=== PATIENT | male | born 1980 | race Caucasian/White ===

== ENCOUNTER 2022-04-13 14:33 | Outpatient (REF) | payer OTHER, SELFPAY ==
--- NOTE | ~2022-04-13 | XR_ITS ---
EXAMINATION: XR SHOULDER, RIGHT CLINICAL INFORMATION: Right shoulder pain COMPARISON: None TECHNIQUE: Three views of the right shoulder. FINDINGS: The humeral head is well positioned over the intact glenoid. Glenohumeral joint space is normal. No arthritic deformity, fracture or subluxation. Acromioclavicular joint is normal. The subacromial space is normal. Scapula is unremarkable. No calcium deposition within rotator cuff tendons. The visualized portion of the right lung is normal. XR/XR shoulder RT min 2V IMPRESSION: Normal right shoulder.
== END 2022-04-13 14:34 | disposition home or self-care (01) ==
LOC: HO.HMGCX 14:33
PROVIDERS: Visit Provider Nurse Practitioner Family
DX: M25.511 Pain in right shoulder (principal)
CPT/HCPCS: 73030

== ENCOUNTER 2022-04-28 08:03 | Emergency (ER) | payer OTHER, SELFPAY ==
[2022-04-28 08:07] VITALS: BP 132/88; BP 143/81; PULSE 66; PULSE 99; RESP 20; TEMP 36.8; O2SAT 97; O2SAT 99; BMI 25.0
--- NOTE | 2022-04-28 08:18 | ED.EXTPRO ---
HPI - Extremity Problem General Chief complaint: Extremity Problem Stated complaint: R shoulder spasm rad to chest and leg Time Seen by Provider: 04/28/22 08:11 Source: patient Mode of arrival: ambulatory Limitations: no limitations History of Present Illness HPI Narrative: 41 yo male denies PMH but smokes regularly and drinks 5 to 6 drinks a night. Notes for the past 3 weeks he feels spasms in his shoulders and his legs are heavy. He denies n/v/d preceding this, he is not on a diuretic. He notes his urine is clear. there was no precipitating event. He notes it started to feel funny in his chest as well. He has been trying to drink more fluids and coconut water. He denies this happending before. He was seen at urgent care x 2 who did not check labs but did start him on muscle relaxers without relief. MD Complaint: other (muscle cramps) Onset (ago): week(s) (3) Pain Consistency: constant Location: left, right and other (shoulders, legs feel heavy) Quality: other (spasms) Radiation: other (did has spasms across chest as well ) Relieving factors: nothing Exacerbating factors: nothing Associated symptoms: denies other symptoms Related Data Previous Rx's Medication Instructions Recorded cyclobenzaprine 10 mg tablet 10 mg PO BID PRN muscle spasm 7 04/13/22 days #14 tabs ibuprofen 100 mg/5 mL oral 600 mg (30 mL) PO Q8H PRN pain 04/13/22 suspension #473 mL baclofen 5 mg tablet 5 mg PO TID PRN Muscle spasms #20 04/16/22 tabs folic acid 800 mcg tablet 0.8 mg PO DAILY #30 tabs 04/28/22 thiamine HCl (vitamin B1) 100 mg 100 mg PO DAILY #30 tabs 04/28/22 tablet Allergies Allergy/AdvReac Type Severity Reaction Status Date / Time No Known Allergies Allergy Verified 04/16/22 13:09 [No Known Allergies*] Review of Systems Review of Systems: Constitutional : No Weight loss, No Fever, No Chills ENT/Mouth : No sore throat, No Rhinorrhea Eyes: No Eye Pain, No Swelling Cardiovascular : pos Chest Pain, no SOB, no Dyspnea on Exertion, No Orthopnea, No Edema, No Palpitations Respiratory : No Cough, No Sputum Gastrointestinal : no Nausea, No Vomiting, No Diarrhea, No abdominal Pain, No Hematochezia, No Melena Genitourinary : No Dysuria, No Urinary Frequency Musculoskeletal : No joint pain, No Myalgias, No Joint Swelling, pos muscle spasms Skin : No Skin Lesions, No rash Neuro : No Weakness, No Numbness, No Dizziness, No Headache Psych : No Anxiety/Panic, No Depression Heme/Lymph: No Bruising, No Lymphadenopathy Endocrine : No Polyuria, No Polydipsia All other systems reviewed and are negative [facility] Past Medical History Attestation statement: The following information was validated with the patient. Medical History No pertinent past medical history Social History Social History (Updated 04/28/22 @ 08:59 by Ruth Treviño DO) Alcohol intake: current Alcohol intake frequency: 3 or more drinks per day Alcohol type: beer Patient Tobacco Use Status: Current everyday Tobacco user Smoked in Last 30 Days: No Use of substances other than those prescribed or required for medical reasons: Yes Substance Use Type: Marijuana Substance Use Frequency: Daily Advance Directives: No Advance Directives Information Provided: No Physical Exam Vital Signs: Vital Signs: Last Vital Signs Temp 97.6 F 04/28/22 09:16 Pulse 94 04/28/22 09:16 Resp 16 04/28/22 09:16 BP 126/86 04/28/22 09:16 Pulse Ox 100 04/28/22 09:16 O2 Del Method 04/28/22 09:16 BMI result Body Mass Index 25.0 Appearance: Alert. Oriented X3. No acute distress. Eyes: Pupils equal, round and reactive to light. ENT: Pharynx normal. Neck: Normal inspection. Neck supple. CVS: Normal heart rate and rhythm. Pulses normal. Respiratory: No respiratory distress. Breath sounds normal. Abdomen: Soft and non-tender. Skin: Skin warm and dry. Normal skin color. Normal skin turgor. Extremities: No lower extremity edema. No calf ttp Neuro: Oriented X 3. No motor deficit. No sensory deficit. no clonus present Medications Administered Discontinued Medications Generic Name Dose Route Start Last Admin Trade Name Freq PRN Reason Stop Dose Admin Sodium Chloride 1,000 mls @ 999 mls/hr 04/28/22 08:45 04/28/22 09:56 Ns IV 04/28/22 09:45 Infused .Q1H1M MEL Infusion Thiamine HCl 200 mg/ Sodium 102 mls @ 204 mls/hr 04/28/22 08:37 04/28/22 09:25 Chloride IV 04/28/22 09:06 Infused ONCE ONE Infusion Medical Decision Making Medical Decision Making [facility] Narrative: 41 yo male with no PMH does drink heavily daily here with muscle spasms that sometimes go across the chest which is atypical in nature without ACS risk factors denies cocaine abuse - last used in August. At this time given symptoms suspect lyte abnormality vs dehydration vs possible other neurologic issue. He is PERC negative, has bounding distal pulses and has no pain now doubt dissection. His chest pain is atypical and related to spasm ACS is unlikely no signs of STEMI noted. could have neurologic issue but will need outpatient follow up such as MRI or EEG - discussed with patient that this is outpatient given lack of neurologic findings - MS, ALS Differential Diagnosis Differential Diagnoses: The differential diagnosis associated with the presentation includes lyte abnormality, dehydration, alcohol abuse, MSK strain Lab Data [facility] Lab Attestation statement: I reviewed the patient's lab results. lytes normal at this time 04/28/22 08:40 04/28/22 08:40 Labs: Lab Results 04/28/22 04/28/22 Range/Units 08:40 08:40 WBC 8.0 (4.8-10.8) X10*3/uL RBC 4.76 (4.60-5.80) X10*6/uL Hgb 14.6 (14.0-18.0) g/dl Hct 43.1 (42.0-52.0) % MCV 90.5 (80.0-98.0) fL MCH 30.7 (27.0-33.0) pg MCHC 33.9 (31.0-36.0) g/dl RDW 12.6 (11.0-16.0) % Plt Count 270 (160-400) X10*3/uL MPV 8.9 L (9.4-12.4) fL Immature Gran % (Auto) 0.9 H (0.0-0.4) % Neut % (Auto) 69.6 (45-73) % Lymph % (Auto) 17.7 L (20-40) % [place] % (Auto) 7.3 (2-11) % Eos % (Auto) 4.0 (0-4) % Baso % (Auto) 0.5 (0-2) % Lymph # (Auto) 1.4 (1.2-4.9) X10*3/uL [place] # (Auto) 0.6 (0.1-1.2) X10*3/uL Eos # (Auto) 0.3 (0.0-0.4) X10*3/uL Baso # (Auto) 0.0 (0.0-0.2) X10*3/uL Abs Immat Gran (auto) 0.07 H (0.00-0.03) X10*3/uL Absolute Neuts (auto) 5.6 (2.0-8.3) x10*3/uL Absolute Nucleated RBC 0.000 (0.0-0.012) X10*3/uL Nucleated RBC % (auto) 0.0 (0.0-0.2) /100WBC Sodium 139 (135-145) mmol/L Potassium 4.4 (3.3-5.1) mmol/L Chloride 100 (96-108) mmol/L Carbon Dioxide 29 (22-29) mmol/L Anion Gap 14 (12-20) BUN 16 (9-16) mg/dL Creatinine 1.08 (0.5-1.4) mg/dL Estim Creat Clear Calc 79.8 Estimated GFR > 60 Random Glucose 94 (60-115) mg/dL Calcium 9.7 (8.4-10.2) mg/dL Magnesium 2.2 (1.6-2.6) mg/dL Independent Interpretation I performed an independent interpretation of an: EKG Interpretation: Rate: 81 Rhythm: NSR Chappell: normal Normal P waves. Normal WALLY. Normal QRS complex. ST T wave : no UMESH, inverted t waves III and aVF qTC: normal prior studies: no acute ischemia The study has been interpreted contemporaneously by me. . Independent Historian Clinical information obtained from an independent historian. History obtained from or confirmed by: Spouse Prescription Management I considered prescription management with: Other (thiamine, folic acid) Discharge Plan Discharge Clinical Impression: Muscle spasm Patient Disposition: Home, Self-Care Instructions: Muscle Spasm (ED) Additional Instructions: return to ED for any worsening symptoms or concerns cut down on your drinking. take a multivitamin drink plenty of fluids return for worsening symptoms, fevers, shortness of breath, persistent chest pain you will need to see a primary care doctor for further workup Prescriptions: New thiamine HCl (vitamin B1) 100 mg tablet 100 mg PO DAILY Qty: 30 0RF folic acid 800 mcg tablet 0.8 mg PO DAILY Qty: 30 0RF No Action cyclobenzaprine 10 mg tablet 10 mg PO BID PRN (Reason: muscle spasm) 7 Days Qty: 14 0RF ibuprofen 100 mg/5 mL suspension 600 mg PO Q8H PRN (Reason: pain) Qty: 473 0RF baclofen 5 mg tablet 5 mg PO TID PRN (Reason: Muscle spasms) Qty: 20 0RF Rx Instructions: Sedating no driving Stand Alone Forms: Work/School Release Interventions: ED Discharge Assessment Last Done: 04/28/22 11:00 Discharge Date/Time: 04/28/22 11:00
--- NOTE | 2022-04-28 08:37 | ECG_ITS ---
Test Reason : palpitations Blood Pressure : / mmHG Vent. Rate : 081 BPM Atrial Rate : 081 BPM P-R Int : 170 ms QRS Dur : 086 ms QT Int : 346 ms P-R-T Axes : 028 030 004 degrees QTc Int : 401 ms Normal sinus rhythm Normal ECG No previous ECGs available Referred By: Ruth Treviño Electronically Signed By:CHELSIE FLORES
[2022-04-28 08:45] LABS: MANUAL DIFF FLAG NO
[2022-04-28 08:48] LABS: Basophils Percent Auto 0.5 % (0-2); Eosinophils Absolute Auto 0.3 X10*3/uL (0.0-0.4); Hematocrit 43.1 % (42.0-52.0); Hemoglobin 14.6 g/dl (14.0-18.0); Imm Gran Abs Auto 0.07 X10*3/uL (0.00-0.03); Imm Gran Pct Auto 0.9 % (0.0-0.4); Lymphocytes Absolute Auto 1.4 X10*3/uL (1.2-4.9); Lymphocytes Percent Auto 17.7 % (20-40); Mean Corpuscular HGB Conc 33.9 g/dl (31.0-36.0); Mean Corpuscular Hemoglobin 30.7 pg (27.0-33.0); Mean Corpuscular Volume 90.5 fL (80.0-98.0); Mean Platelet Volume 8.9 fL (9.4-12.4); Monocytes Absolute Auto 0.6 X10*3/uL (0.1-1.2); Monocytes Percent Auto 7.3 % (2-11); Neutrophils Absolute Auto 5.6 x10*3/uL (2.0-8.3); Neutrophils Percent Auto 69.6 % (45-73); Platelet Count 270 X10*3/uL (160-400); Red Blood Count 4.76 X10*6/uL (4.60-5.80); Red Cell Distribution Width 12.6 % (11.0-16.0)
[2022-04-28] MEDS: 0.9 % Sodium Chloride 1,000 ML 999 ML IV (08:55)
[2022-04-28] MEDS: Thiamine HCL 200 MG in 0.9 % Sodium Chloride 100 ML 204 MG IV (08:55)
--- NOTE | 2022-04-28 08:57 | MHC.EDTECH ---
Gave patient bed bath, changed linen and then fed him his breakfast. Joann Juarez
[2022-04-28 09:07] LABS: Anion Gap 14 (12-20); Blood Urea Nitrogen 16 mg/dL (9-16); Calcium 9.7 mg/dL (8.4-10.2); Carbon Dioxide 29 mmol/L (22-29); Chloride 100 mmol/L (96-108); Creatinine Clr Calc Pharmacy 79.8; Estimated Glomerular Filt Rate > 60; Glucose Random 94 mg/dL (60-115); Magnesium 2.2 mg/dL (1.6-2.6); Potassium 4.4 mmol/L (3.3-5.1); Sodium 139 mmol/L (135-145)
[2022-04-28 09:16] VITALS: BP 126/86; PULSE 94; RESP 16; TEMP 36.4; O2SAT 100
--- NOTE | 2022-04-28 09:18 | PC.NURSE ---
pt a&ox3, vss, ekg preformed, iv inserted, iv fluids running per order
== END 2022-04-28 11:00 | disposition home or self-care (01) ==
PROVIDERS: Emergency Provider Emergency Medicine
DX: M62.838 Other muscle spasm (principal); R00.2 Palpitations; Z79.899 Other long term (current) drug therapy
CPT/HCPCS: 36415; 80048; 83735; 85025; 93005; 96361; 96374; 99284; J3411

== ENCOUNTER 2022-09-20 10:23 | Emergency (ER) | payer OTHER, SELFPAY ==
--- NOTE | ~2022-09-20 | XR_ITS ---
EXAMINATION: XR ABDOMEN KUB CLINICAL INDICATION: Right abdominal pain COMPARISON: None available. TECHNIQUE: AP view of the abdomen. FINDINGS: The bowel gas pattern is normal with no evidence of ileus or obstruction. No unusual soft tissue calcifications are noted. The bones are unremarkable. XR/XR KUB IMPRESSION: Unremarkable KUB.
[2022-09-20 10:28] VITALS: BP 153/88; PULSE 74; RESP 19; TEMP 36.6; O2SAT 98; BMI 25.0
--- NOTE | 2022-09-20 10:54 | PC.NURSE ---
patient a&ox3, iv inserted, labs drawn, urine obtained, pt c/o 07/13 rt abd pain-painful upon palp,call chaney within reach, pt awaiting provider will continue to monitor
[2022-09-20 10:58] LABS: Basophils Percent Auto 0.4 % (0-2); Eosinophils Absolute Auto 0.3 X10*3/uL (0.0-0.4); Eosinophils Percent Auto 3.2 % (0-4); Hematocrit 43.1 % (42.0-52.0); Hemoglobin 14.9 g/dl (14.0-18.0); Imm Gran Abs Auto 0.05 X10*3/uL (0.00-0.03); Imm Gran Pct Auto 0.6 % (0.0-0.4); Lymphocytes Absolute Auto 1.7 X10*3/uL (1.2-4.9); Lymphocytes Percent Auto 20.3 % (20-40); MANUAL DIFF FLAG NO; Mean Corpuscular HGB Conc 34.6 g/dl (31.0-36.0); Mean Corpuscular Hemoglobin 30.9 pg (27.0-33.0); Mean Corpuscular Volume 89.4 fL (80.0-98.0); Mean Platelet Volume 9.2 fL (9.4-12.4); Monocytes Absolute Auto 0.7 X10*3/uL (0.1-1.2); Neutrophils Absolute Auto 5.5 x10*3/uL (2.0-8.3); Neutrophils Percent Auto 67.5 % (45-73); Platelet Count 297 X10*3/uL (160-400); Red Blood Count 4.82 X10*6/uL (4.60-5.80); White Blood Count 8.1 X10*3/uL (4.8-10.8)
[2022-09-20 11:00] LABS: Appearance Urine Clear; Color Urine Yellow; Glucose Urine UA Negative (Negative); Leukocyte Esterase Urine Negative (Negative); Nitrite Urine Negative (Negative); Specific Gravity - Urine <= 1.005 (1.005-1.025); Urine Blood Negative (Negative); Urine Ketones Negative (Negative); Urine Protein Negative (Neg-Trace)
[2022-09-20 11:33] LABS: Alanine Aminotransferase 13 U/L (0-40); Albumin Level 4.9 g/dL (3.5-5.0); Alkaline Phosphatase 66 U/L (39-117); Anion Gap 14 (12-20); Aspartate Amino Transferase 18 U/L (5-37); Bilirubin Direct 0.2 mg/dL (0.0-0.5); Bilirubin Total 0.7 mg/dL (0.0-1.0); Blood Urea Nitrogen 11 mg/dL (9-16); Calcium 10.4 mg/dL (8.4-10.2); Carbon Dioxide 26 mmol/L (22-29); Chloride 106 mmol/L (96-108); Estimated Glomerular Filt Rate > 60; Glucose Random 93 mg/dL (60-115); Lipase 19 U/L (8-78); Potassium 4.3 mmol/L (3.3-5.1); Sodium 142 mmol/L (135-145)
--- NOTE | 2022-09-20 12:21 | ED_ITS ---
HPI - Abdominal Pain General Chief Complaint: Abdominal Pain Stated Complaint: abd pain Time Seen by Provider: 09/20/22 10:47 Source: patient and family Mode of arrival: ambulatory History of Present Illness HPI narrative: 42-year-old male who is a 4-5 every day beer drinker and has been suffering from chronic back pain and presents with right-sided abdominal discomfort that radiates from the back, also complaining of epigastric discomfort but denies any fevers, chills, nausea, vomiting, diarrhea and denies any urinary symptoms. Related Data Previous Rx's Medication Instructions Recorded cyclobenzaprine 10 mg tablet 10 mg PO BID PRN muscle spasm 7 04/13/22 days #14 tabs ibuprofen 100 mg/5 mL oral 600 mg (30 mL) PO Q8H PRN pain 04/13/22 suspension #473 mL baclofen 5 mg tablet 5 mg PO TID PRN Muscle spasms #20 04/16/22 tabs folic acid 800 mcg tablet 0.8 mg PO DAILY #30 tabs 04/28/22 thiamine HCl (vitamin B1) 100 mg 100 mg PO DAILY #30 tabs 04/28/22 tablet omeprazole 40 mg capsule,delayed 40 mg PO DAILY #30 caps 09/20/22 release sucralfate 100 mg/mL oral 10 ml PO BID #420 mL 09/20/22 suspension (Carafate) Allergies Allergy/AdvReac Type Severity Reaction Status Date / Time No Known Allergies Allergy Verified 09/20/22 10:27 [No Known Allergies*] Review of Systems Review of Systems Pertinent positives and negatives as stated in HPI [facility] Past Medical History Source: nursing notes reviewed Medical History No pertinent past medical history Social History Social History Alcohol intake: current Alcohol intake frequency: a few times a week Alcohol type: beer Patient Tobacco Use Status: Current everyday Tobacco user Smoked in Last 30 Days: No Use of substances other than those prescribed or required for medical reasons: No Substance Use Type: Marijuana Advance Directives: No Advance Directives Information Provided: Yes Physical Exam ED Vital Signs: Vital Signs - 24 hr 09/20/22 10:28 Temperature 98 F Pulse Rate 74 Respiratory Rate 19 Blood Pressure 153/88 H Pulse Oximetry 98 Oxygen Delivery Method Room Air BMI result Body Mass Index 25.0 VITAL SIGNS: Reviewed. GENERAL: Well developed, well nourished, in no acute distress. HEAD: Normocephalic/atraumatic EYES: PERRLA, EOMI EARS: Ext canals without abnormality NOSE: Nares patent bilateral OROPHARYNX: no oral lesions noted, posterior pharynx clear NECK: Supple, no adenopathy LUNGS: Normal breath sounds. No adventitious sounds or accessory muscle use. SpO2<98> CARDIOVASCULAR: Regular rate and rhythm without noted murmurs ABDOMEN: Soft, non-tender, non-distended with bowel sounds. MUSCULOSKELETAL: No tenderness, deformities, or effusions noted on gross inspection. EXTREMITIES: No cyanosis, clubbing or edema. SKIN: Inspection of the skin reveals no rashes NEUROLOGIC: Alert and oriented x 4. Strength and sensation to light touch were grossly intact x 4. Medical Decision Making Medical Decision Making MDM Narrative: 42-year-old male with history and clinical presentation most suggestive of acute on chronic back pain and may be component gastritis given use of NSAIDs and alcohol. I have no clinical suspicion for an ongoing infection for a month. I reviewed all investigations and my interpretation is acute on chronic back pa in and gastritis secondary to NSAID and alcohol use. Differential Diagnosis Please see the discussion above Lab Data Please see the discussion above 09/20/22 10:51 09/20/22 10:51 Labs: Lab Results 09/20/22 09/20/22 09/20/22 Range/Units 10:51 10:51 10:51 WBC 8.1 (4.8-10.8) X10*3/uL RBC 4.82 (4.60-5.80) X10*6/uL Hgb 14.9 (14.0-18.0) g/dl Hct 43.1 (42.0-52.0) % MCV 89.4 (80.0-98.0) fL MCH 30.9 (27.0-33.0) pg MCHC 34.6 (31.0-36.0) g/dl RDW 12.0 (11.0-16.0) % Plt Count 297 (160-400) X10*3/uL MPV 9.2 L (9.4-12.4) fL Immature Gran % (Auto) 0.6 H (0.0-0.4) % Neut % (Auto) 67.5 (45-73) % Lymph % (Auto) 20.3 (20-40) % Saline % (Auto) 8.0 (2-11) % Eos % (Auto) 3.2 (0-4) % Baso % (Auto) 0.4 (0-2) % Lymph # (Auto) 1.7 (1.2-4.9) X10*3/uL Saline # (Auto) 0.7 (0.1-1.2) X10*3/uL Eos # (Auto) 0.3 (0.0-0.4) X10*3/uL Baso # (Auto) 0.0 (0.0-0.2) X10*3/uL Abs Immat Gran (auto) 0.05 H (0.00-0.03) X10*3/uL Absolute Neuts (auto) 5.5 (2.0-8.3) x10*3/uL Absolute Nucleated RBC 0.000 (0.0-0.012) X10*3/uL Nucleated RBC % (auto) 0.0 (0.0-0.2) /100WBC Sodium 142 (135-145) mmol/L Potassium 4.3 (3.3-5.1) mmol/L Chloride 106 (96-108) mmol/L Carbon Dioxide 26 (22-29) mmol/L Anion Gap 14 (12-20) BUN 11 (9-16) mg/dL Creatinine 1.17 (0.5-1.4) mg/dL Estim Creat Clear Calc 73.0 Estimated GFR > 60 Random Glucose 93 (60-115) mg/dL Calcium 10.4 H D (8.4-10.2) mg/dL Total Bilirubin 0.7 (0.0-1.0) mg/dL Direct Bilirubin 0.2 (0.0-0.5) mg/dL AST 18 (5-37) U/L ALT 13 (0-40) U/L Alkaline Phosphatase 66 (39-117) U/L Total Protein 8.0 (6.5-8.0) g/dL Albumin 4.9 (3.5-5.0) g/dL Lipase 19 (8-78) U/L Urine Color Yellow Urine Appearance Clear Urine pH 6.0 (5.0-9.0) Ur Specific [place] <= 1.005 (1.005-1.025) Urine Protein Negative (Neg-Trace) mg/dL Urine Glucose (UA) Negative (Negative) mg/dL Urine Ketones Negative (Negative) mg/dL Urine Blood Negative (Negative) Urine Nitrite Negative (Negative) Ur Leukocyte Esterase Negative (Negative) Radiology Impression Radiologist Impression: My interpretation is in agreement with radiology's impression. Discharge Plan Discharge Clinical Impression: Gastritis, Acute exacerbation of chronic low back pain, NSAID long-term use Patient Disposition: Home, Self-Care Instructions: Gastritis (ED), Diet for Stomach Ulcers and Gastritis (ED), Back Pain (ED), Safe Use of NSAIDs (ED) Additional Instructions: 1. I suspect that your symptoms are likely a combination of your chronic back pain as well as inflammation of the stomach lining due to the use of the ibuprofen in combination with alcohol. 2. I recommend that you stop using the ibuprofen (this would include Motrin, Naprosyn, Aleve, Excedrin) for a minimum of 1 week as well as no alcohol use for the same time. You will then need to use the 2 prescriptions that I have included at this discharge. 3. Follow-up with your primary care provider for discussion regarding possible upper endoscopy. Return to the ER for any worsening symptoms. Prescriptions: New omeprazole 40 mg capsule,delayed release(DR/EC) 40 mg PO DAILY Qty: 30 0RF sucralfate [Carafate] 100 mg/mL suspension 10 ml PO BID Qty: 420 0RF No Action thiamine HCl (vitamin B1) 100 mg tablet 100 mg PO DAILY Qty: 30 0RF folic acid 800 mcg tablet 0.8 mg PO DAILY Qty: 30 0RF cyclobenzaprine 10 mg tablet 10 mg PO BID PRN (Reason: muscle spasm) 7 Days Qty: 14 0RF ibuprofen 100 mg/5 mL suspension 600 mg PO Q8H PRN (Reason: pain) Qty: 473 0RF baclofen 5 mg tablet 5 mg PO TID PRN (Reason: Muscle spasms) Qty: 20 0RF Rx Instructions: Sedating no driving Referrals: Barney Dash MD [Primary Care Provider] -
[2022-09-20] MEDS: Lidocaine HCl Viscous 2 % 15 ML SOLUTION 10 ML MUCOUS MEM (12:55)
[2022-09-20] MEDS: Sucralfate Oral Suspension 1 GM/10 ML ORAL.SUSP PO (12:55)
[2022-09-20] MEDS: Magnesium Hydrox/Alum Hydrox 30 ML ORAL.SUSP PO (12:55)
--- NOTE | 2022-09-20 12:55 | PC.NURSE ---
pt medicated per order
== END 2022-09-20 13:15 | disposition home or self-care (01) ==
PROVIDERS: Emergency Provider Student in an Organized Health Care Education/Training Program; PCP Internal Medicine Cardiovascular Disease
DX: K29.70 Gastritis, unspecified, without bleeding (principal); G89.29 Other chronic pain; M54.50 Low back pain, unspecified; Z79.1 Long term (current) use of non-steroidal anti-inflammatories (NSAID); Z79.899 Other long term (current) drug therapy
CPT/HCPCS: 36415; 74018; 80048; 80076; 81003; 83690; 85025; 99283; 99284

== ENCOUNTER 2022-10-27 08:03 | Outpatient (AMB) | payer OTHER, SELFPAY ==
--- NOTE | 2022-10-27 08:07 | MHC.OFFWIV ---
Intake Vital Signs 10/27/22 08:10 Height 5 ft 5 in BP 118/70 Blood Pressure Location Lt brachial Position Sitting Pulse 80 Pulse Source Pulse Oximeter Temp 97.3 F Temp Source Temporal Artery Scan Pulse Oximetry (%) 98 Oxygen Delivery Method Room Air Intake Visit Reasons: EP Pain in rt side abd (lobby) Intake Note: Pt is here c/o a sharp needle pain in his stomach. Pt states he has been getting stomach aches but last night was the worse. Patient Tobacco Use Status: Current everyday Tobacco user Allergies No Known Allergies [No Known Allergies*] Allergy (Verified 10/27/22 08:09) Do you need a note to return to daycare/school/sports/work: Yes HPI HPI Comments History of Present Illness Details 42-year-old male presents with periumbilical abdominal pain radiating to his right lower quadrant. States that this pain was so intense last night that he could not sleep. He has no prior history of surgeries, has had 2 bowel movements this morning, and does not report fevers or chills. [facility] Medical History No pertinent past medical history Social History Alcohol intake: current Alcohol intake frequency: a few times a week Alcohol type: beer Patient Tobacco Use Status: Current everyday Tobacco user Substance Use Type: Marijuana Review of Systems Const Details: Constitutional: No Fever, No Chills Cardiovascular: No Chest Pain, No SOB Respiratory: No Cough, No Dyspnea Gastrointestinal: No Nausea, No Vomiting, No Diarrhea, positive umbilical abdominal Pain Genitourinary: No Dysuria, No Hematuria Musculoskeletal: No joint pain, No Myalgias, No Joint Swelling Skin: No Skin lacerations, No rash Neuro: No Weakness, No Dizziness, No Headache All systems reviewed & are unremarkable except as noted in HPI and below Physical Exam Vital Signs: Last Vital Signs Temp 97.3 F 10/27/22 08:10 Pulse 80 10/27/22 08:10 BP 118/70 10/27/22 08:10 Pulse Ox 98 10/27/22 08:10 Oxygen Delivery Method Room Air 10/27/22 08:10 Appearance: Alert. Oriented X3. Mild distress. Eyes: Pupils equal, round and reactive to light. Neck: Normal inspection. Neck supple. CVS: Normal heart rate and rhythm. Pulses normal. Respiratory: No respiratory distress. Breath sounds normal. Abdomen: Soft and tender to the umbilical radiating to the right lower quadrant, tenderness to the epigastric and right upper quadrant Skin: Skin warm and dry. Normal skin color. Normal skin turgor. Extremities: Gait well balanced well coordinated Neuro: No motor deficit. No sensory deficit cranial nerves 2-12 intact. Results AMB Urinalysis, Automated UA Leukoctes 0 Scotty/uL Last Edit by Kirti Stratton, ZAC on 10/27/22 08:23 UA Nitrite Negative Last Edit by Kirti Stratton, MEDICAL SONOGRAPHER on 10/27/22 08:23 UA Urobilinogen 0.2 mg/dL Last Edit by Kirti Stratton, MEDICAL SONOGRAPHER on 10/27/22 08:23 UA Protein 15 mg/dL Last Edit by Kirti Stratton, MEDICAL SONOGRAPHER on 10/27/22 08:23 UA pH 6.0 Last Edit by Kirti Stratton, MEDICAL SONOGRAPHER on 10/27/22 08:23 UA Blood 0 Forrets/uL Last Edit by Kirti Stratton, MEDICAL SONOGRAPHER on 10/27/22 08:23 UA Specific [place] 1.025 Last Edit by Kirti Stratton, MEDICAL SONOGRAPHER on 10/27/22 08:23 UA Ketone Negative Last Edit by Kirti Stratton, ZAC on 10/27/22 08:23 UA Bilirubin 0 mg/dL Last Edit by Kirti Stratton, MEDICAL SONOGRAPHER on 10/27/22 08:23 UA Glucose 0 mg/dL Last Edit by Kirti Stratton, MEDICAL SONOGRAPHER on 10/27/22 08:23 Assessment & Plan Assessment & Plan (1) Abdominal pain: Code(s): R10.9 - Unspecified abdominal pain Plan 42-year-old male presents for abdominal pain that started around his umbilicus radiating to his right lower quadrant, this pain started last night however he does report having abdominal pain off and on over the past few months. States the abdominal pain was so bad last night that he could not sleep. He does not report fevers or chills, and is able to eat and drink without difficulty. He has had several bowel movement this morning. No prior history of abdominal surgery. On exam, patient's abdomen is soft, tender to the umbilicus, right lower quadrant, right upper quadrant and epigastric area. Patient has stable vital signs are within normal limits, afebrile. And appears nontoxic. Considering that this patient has not had prior abdominal surgery, and has a tender abdomen palpation, plan of care is for patient to be evaluated in the emergency department for acute abdomen. Patient would like to go to [facility] provider to provider report called in by this TUNNEL HEADING SUPERVISOR. Orders: Orders AMB Urinalysis Automated Today Z13.9 - Encounter for screening, unspecified Patient Instructions: You were evaluated in urgent care for abdominal pain. Please present to the emergency department for evaluation. Coding Level of Care Code Est Pt Level 3 (94760) Diagnoses Abdominal pain R10.9
[2022-10-27 08:10] VITALS: BP 118/70; PULSE 80; TEMP 36.3; O2SAT 98
== END 2022-10-27 08:32 | disposition home or self-care (01) ==
PROVIDERS: PCP Internal Medicine Cardiovascular Disease; Visit Provider Nurse Practitioner Family
DX: R10.9 Unspecified abdominal pain (principal)
CPT/HCPCS: 81003; 99213

== ENCOUNTER 2022-10-27 08:52 | Emergency (ER) | payer OTHER, SELFPAY ==
--- NOTE | ~2022-10-27 | CT_ITS ---
EXAMINATION: CT ABDOMEN AND PELVIS WITH CONTRAST CLINICAL INFORMATION: Right lower quadrant pain. COMPARISON: None available. TECHNIQUE: Multidetector volumetric images were obtained from the superior aspect of the liver through the pubic symphysis following administration 85 mL of Omnipaque 350 intravenous contrast. Sagittal and coronal reformatted images were obtained on the technologist's workstation. Oral contrast: No This CT examination was performed using dose optimization techniques as appropriate, variously including the following: *Automated exposure control *Adjustment of mA and/or kV according to patient size (this includes techniques or standardized protocols for targeted exams where dose is matched to indication/reason for exam; i.e. extremities or head) *Use of iterative reconstruction technique DLP: 443 mGy-cm FINDINGS: LUNG BASES: The visualized lung bases are unremarkable. LIVER, GALLBLADDER, AND BILIARY TREE: Unremarkable. PANCREAS: Unremarkable. SPLEEN: Unremarkable. ADRENAL GLANDS: Unremarkable. KIDNEYS AND URETERS: The kidneys are normal in size, shape, and attenuation. No hydronephrosis, hydroureter, or calculi seen. No perinephric stranding. BLADDER: Unremarkable. GASTROINTESTINAL TRACT: The stomach, small bowel and appendix are unremarkable. The colon and rectum are unremarkable. ABDOMINAL WALL: No significant hernia is appreciated. LYMPH NODES: No lymphadenopathy. VASCULAR: Unremarkable. PELVIC VISCERA: Unremarkable. OSSEOUS STRUCTURES: Unremarkable. CT/CT abdomen pelvis w IV con IMPRESSION: No acute intra-abdominal/pelvic abnormality to explain the patient's pain. No evidence for acute appendicitis. Fleischner guidelines were followed.
[2022-10-27 09:04] VITALS: BP 115/64; PULSE 77; RESP 18; TEMP 36.3; O2SAT 99; BMI 26.1
[2022-10-27 10:00] VITALS: BP 135/79; PULSE 69; RESP 18; TEMP 36.9; O2SAT 99
[2022-10-27] MEDS: 0.9 % Sodium Chloride 1,000 ML 999 ML IV (10:19)
[2022-10-27 10:20] LABS: MANUAL DIFF FLAG NO
[2022-10-27 10:22] LABS: Basophils Percent Auto 0.3 % (0-2); Eosinophils Absolute Auto 0.1 X10*3/uL (0.0-0.4); Eosinophils Percent Auto 0.9 % (0-4); Hematocrit 38.1 % (42.0-52.0); Hemoglobin 13.2 g/dl (14.0-18.0); Imm Gran Abs Auto 0.02 X10*3/uL (0.00-0.03); Imm Gran Pct Auto 0.3 % (0.0-0.4); Lymphocytes Absolute Auto 1.2 X10*3/uL (1.2-4.9); Lymphocytes Percent Auto 15.9 % (20-40); Mean Corpuscular HGB Conc 34.6 g/dl (31.0-36.0); Mean Corpuscular Hemoglobin 30.8 pg (27.0-33.0); Monocytes Absolute Auto 0.7 X10*3/uL (0.1-1.2); Monocytes Percent Auto 9.9 % (2-11); Neutrophils Absolute Auto 5.4 x10*3/uL (2.0-8.3); Neutrophils Percent Auto 72.7 % (45-73); Platelet Count 270 X10*3/uL (160-400); Red Blood Count 4.28 X10*6/uL (4.60-5.80); Red Cell Distribution Width 11.7 % (11.0-16.0); White Blood Count 7.5 X10*3/uL (4.8-10.8)
[2022-10-27] MEDS: Ketorolac Tromethamine 15 MG/ML VIAL IVPUSH (10:22)
[2022-10-27] MEDS: ondansetron HCL 4 MG/2 ML VIAL IVPUSH (10:22)
--- NOTE | 2022-10-27 10:25 | PC.NURSE ---
pt a&ox3, vss, pt coming in d/t increasein abomdinal pain that has been going on since wednesday. pt went to urgent care to be seen and then urgent care sent pt [place] [facility]. pt stating 4/10 abdominal pain. 20g IV placed in the right AC w/o complications, IVF and medications administered per provider order. labs drawn and sent to lab. urine cup placed bedside for when pt needs to urinate so we are able to send sample. verbalized to pt to use call chaney so he can be d/c from fluids.
[2022-10-27 10:35] LABS: Alanine Aminotransferase 12 U/L (0-40); Albumin Level 4.4 g/dL (3.5-5.0); Alkaline Phosphatase 73 U/L (39-117); Anion Gap 9 (12-20); Aspartate Amino Transferase 14 U/L (5-37); Bilirubin Total 0.7 mg/dL (0.0-1.0); Blood Urea Nitrogen 11 mg/dL (9-16); Calcium 9.7 mg/dL (8.4-10.2); Carbon Dioxide 27 mmol/L (22-29); Chloride 108 mmol/L (96-108); Estimated Glomerular Filt Rate > 60; Glucose Random 86 mg/dL (60-115); Lipase 18 U/L (8-78); Potassium 3.7 mmol/L (3.3-5.1); Sodium 140 mmol/L (135-145); Total Protein 7.4 g/dL (6.5-8.0)
[2022-10-27] MEDS: iohexoL 350 MG/ML 100 ML INFUS..BTL IV (11:12)
[2022-10-27 11:37] VITALS: BP 121/76; PULSE 64; RESP 18; O2SAT 98
[2022-10-27 11:37] LABS: Appearance Urine Clear; Color Urine Yellow; Glucose Urine UA Negative (Negative); Leukocyte Esterase Urine Negative (Negative); Nitrite Urine Negative (Negative); Specific Gravity - Urine <= 1.005 (1.005-1.025); Urine Blood Negative (Negative); Urine Ketones Negative (Negative); Urine Protein Negative (Neg-Trace)
--- NOTE | 2022-10-27 11:37 | PC.NURSE ---
pt a&ox3, returned from CT and urinesent to lab, vss, pt verbalizing that pain decreased to a 1/0 post medication administration. IVF completely infused and dc'd. call chaney within reach.
--- NOTE | 2022-10-27 12:37 | ED.ABDPAIN ---
HPI - Abdominal Pain General Chief Complaint: Abdominal Pain Stated Complaint: ? Appendicitis Sent By PCP Time Seen by Provider: 10/27/22 09:39 Source: patient Mode of arrival: ambulatory Limitations: no limitations History of Present Illness HPI narrative: Patient presents with abdominal pain. The symptoms started 2 or 3 days ago. The symptoms come and go. At its worst the pain is a 10/10. Currently the pain is a 3/10. The pain does not radiate. There is no clear relieving or exacerbating features. There was some nausea but no vomiting. There is no diarrhea constipation. No urinary frequency urgency, or dysuria. He has never had this pain before. No history of intra-abdominal surgeries. Related Data Home Medications Medication Instructions Recorded Confirmed famotidine 20 mg tablet 20 mg PO BID 10/27/22 Previous Rx's Medication Instructions Recorded folic acid 800 mcg tablet 0.8 mg PO DAILY #30 tabs 04/28/22 thiamine HCl (vitamin B1) 100 mg 100 mg PO DAILY #30 tabs 04/28/22 tablet omeprazole 40 mg capsule,delayed 40 mg PO DAILY #30 caps 09/20/22 release sucralfate 100 mg/mL oral 10 ml PO BID #420 mL 09/20/22 suspension (Carafate) Allergies Allergy/AdvReac Type Severity Reaction Status Date / Time No Known Allergies Allergy Verified 10/27/22 09:04 [No Known Allergies*] Review of Systems Review of Systems CONSTITUTIONAL: Denies weight loss, fever and chills. HEENT: Denies changes in vision and hearing. RESPIRATORY: Denies SOB and cough. CV: Denies palpitations no CP. GI: + abdominal pain, nausea, - vomiting and diarrhea. : Denies dysuria and urinary frequency. MSK: Denies myalgia and joint pain. SKIN: Denies rash and pruritus. NEUROLOGICAL: Denies headache and syncope. PSYCHIATRIC: Denies recent changes in mood. Denies anxiety and depression. All other ROS are negative unless in HPI PMFSH Past Medical History Medical History No pertinent past medical history Social History Social History Alcohol intake: current Alcohol intake frequency: a few times a week Alcohol type: beer Patient Tobacco Use Status: Current everyday Tobacco user Smoked in Last 30 Days: No Use of substances other than those prescribed or required for medical reasons: Yes Substance Use Type: Marijuana Advance Directives: No Advance Directives Information Provided: No Physical Exam ED Vital Signs: Vital Signs - 24 hr 10/27/22 09:04 10/27/22 10:00 10/27/22 11:37 Temperature 97.3 F 98.4 F Pulse Rate 77 69 64 Respiratory Rate 18 18 18 Blood Pressure 115/64 135/79 121/76 Pulse Oximetry 99 99 98 Oxygen Delivery Method Room Air Room Air Room Air BMI result Body Mass Index 26.1 GEN: Well developed, no acute distress, alert, oriented HEENT: Normocephalic, atraumatic, normal external ears, nose appears normal, no oropharyngeal edema or exudates Eyes: Normal to appearance Neck: Supple, no lymphadenopathy Respiratory: Talks in complete sentences, no respiratory distress, clear to auscultation bilaterally Cardiovascular: Regular rate and rhythm, no murmurs rubs or gallops Abdomen: Soft, right lower quadrant tenderness, nondistended, no guarding, no rebound Back: No CVA tenderness Extremities: No clubbing cyanosis or edema Neurologic: No focal neurologic deficits, cranial nerves 2-12 intact, strength is 5/5 bilaterally Skin: No rash Course Course Course Narrative: The workup is complete. Patient is pain-free at the moment. His repeat examination reveals a soft nontender abdomen. I reviewed all results with the patient including normal urinalysis, no evidence of acute appendicitis or other inflammatory process in the abdominal area. He was certainly reassured but somewhat frustrated by not having a diagnosis at this time. Until patient be cautiously optimistic. This may easily resolve on its own. However, shows symptoms become worse, progress in any way, he can return for re-evaluation. Patient will be discharged home to, he can take Tylenol ibuprofen as needed. Medical Decision Making Medical Decision Making MDM Narrative: 42-year-old male presents with lower abdominal pain. Has tenderness in the suprapubic and right lower quadrant area. This concerning for acute appendicitis. Differential diagnosis would also consider consider biliary colic, IBD, IBS, bacterial overgrowth, epiploic appendagitis, mesenteric adenitis, musculoskeletal, ureterolithiasis. Plan to obtain routine laboratory analysis, patient provide patient with analgesia and antiemetics, IV fluids. Would also like to get a CT scan the abdomen pelvis rule out the differential diagnosis. Differential Diagnosis Differential Diagnoses: The differential diagnosis associated with the presentation includes (See above) Admission/Observation Consideration of admission/observation: Escalation of care including admission/observation considered Lab Data MDM Lab Attestation statement: I reviewed the patient's lab results. 10/27/22 10:17 10/27/22 10:17 Labs: Lab Results 10/27/22 10/27/22 10/27/22 Range/Units 10:17 10:17 11:26 WBC 7.5 (4.8-10.8) X10*3/uL RBC 4.28 L (4.60-5.80) X10*6/uL Hgb 13.2 L (14.0-18.0) g/dl Hct 38.1 L (42.0-52.0) % MCV 89.0 (80.0-98.0) fL MCH 30.8 (27.0-33.0) pg MCHC 34.6 (31.0-36.0) g/dl RDW 11.7 (11.0-16.0) % Plt Count 270 (160-400) X10*3/uL MPV 9.0 L (9.4-12.4) fL Immature Gran % (Auto) 0.3 (0.0-0.4) % Neut % (Auto) 72.7 (45-73) % Lymph % (Auto) 15.9 L (20-40) % [place] % (Auto) 9.9 (2-11) % Eos % (Auto) 0.9 (0-4) % Baso % (Auto) 0.3 (0-2) % Lymph # (Auto) 1.2 (1.2-4.9) X10*3/uL [place] # (Auto) 0.7 (0.1-1.2) X10*3/uL Eos # (Auto) 0.1 (0.0-0.4) X10*3/uL Baso # (Auto) 0.0 (0.0-0.2) X10*3/uL Abs Immat Gran (auto) 0.02 (0.00-0.03) X10*3/uL Absolute Neuts (auto) 5.4 (2.0-8.3) x10*3/uL Absolute Nucleated RBC 0.000 (0.0-0.012) X10*3/uL Nucleated RBC % (auto) 0.0 (0.0-0.2) /100WBC Sodium 140 (135-145) mmol/L Potassium 3.7 (3.3-5.1) mmol/L Chloride 108 (96-108) mmol/L Carbon Dioxide 27 (22-29) mmol/L Anion Gap 9 L (12-20) BUN 11 (9-16) mg/dL Creatinine 0.97 (0.5-1.4) mg/dL Estim Creat Clear Calc 88.0 Estimated GFR > 60 Random Glucose 86 (60-115) mg/dL Calcium 9.7 D (8.4-10.2) mg/dL Total Bilirubin 0.7 (0.0-1.0) mg/dL AST 14 (5-37) U/L ALT 12 (0-40) U/L Alkaline Phosphatase 73 (39-117) U/L Total Protein 7.4 (6.5-8.0) g/dL Albumin 4.4 (3.5-5.0) g/dL Lipase 18 (8-78) U/L Urine Color Yellow Urine Appearance Clear Urine pH 7.0 (5.0-9.0) Ur Specific [place] <= 1.005 (1.005-1.025) Urine Protein Negative (Neg-Trace) mg/dL Urine Glucose (UA) Negative (Negative) mg/dL Urine Ketones Negative (Negative) mg/dL Urine Blood Negative (Negative) Urine Nitrite Negative (Negative) Ur Leukocyte Esterase Negative (Negative) Independent Interpretation I performed an independent interpretation of an: CT Scan (Abdomen pelvis, no evidence of appendicitis) Radiology Impression Discussion of test interpretation with radiology: I have reviewed the radiologist's reading. Radiologist Impression: CT/CT abdomen pelvis w IV con IMPRESSION: No acute intra-abdominal/pelvic abnormality to explain the patient's pain. No evidence for acute appendicitis. ? Fleischner guidelines were followed. ? ? Dictated By: Bridger Salcedo MD Signed By: <Electronically signed by Bridger Salcedo MD in OV> 10/27/22 1222 Tests considered The following testing was considered but not selected: Ultrasound abdomen, due to patient's complaints, CT scan is the most appropriate Prescription Management I considered prescription management with: Pain Medication and Antibiotic Chronic Conditions Patient?s care impacted by: Hypertension Medications Administered Discontinued Medications Generic Name Dose Route Start Last Admin Trade Name Sophia PRN Reason Stop Dose Admin Sodium Chloride 1,000 mls @ 999 mls/hr 10/27/22 10:00 10/27/22 11:20 Ns IV 10/27/22 11:00 Infused .Q1H1M MEL Infusion Iohexol 100 ml 10/27/22 11:12 10/27/22 11:12 Iohexol 350 Mg/Ml 100 Ml Infus..Btl IV 10/27/22 11:13 85 ml ONCE ONE Administration Ketorolac Tromethamine 15 mg 10/27/22 09:53 10/27/22 10:22 Ketorolac Tromethamine 15 Mg/Ml Vial IVPUSH 10/27/22 09:54 15 mg ONCE ONE Administration Ondansetron HCl 4 mg 10/27/22 09:53 10/27/22 10:22 Ondansetron Hcl 4 Mg/2 Ml Vial IVPUSH 10/27/22 09:54 4 mg ONCE ONE Administration Discharge Plan Discharge Clinical Impression: Abdominal pain Patient Disposition: Home, Self-Care Instructions: Abdominal Pain (ED) Prescriptions: No Action thiamine HCl (vitamin B1) 100 mg tablet 100 mg PO DAILY Qty: 30 0RF folic acid 800 mcg tablet 0.8 mg PO DAILY Qty: 30 0RF omeprazole 40 mg capsule,delayed release(DR/EC) 40 mg PO DAILY Qty: 30 0RF sucralfate [Carafate] 100 mg/mL suspension 10 ml PO BID Qty: 420 0RF famotidine 20 mg tablet 20 mg PO BID Referrals: Barney Dash MD [Primary Care Provider] - 5 days
== END 2022-10-27 14:24 | disposition home or self-care (01) ==
PROVIDERS: Emergency Provider Emergency Medicine; PCP Internal Medicine Cardiovascular Disease
DX: R10.9 Unspecified abdominal pain (principal); R11.0 Nausea; F17.200 Nicotine dependence, unspecified, uncomplicated; F12.90 Cannabis use, unspecified, uncomplicated; Z79.899 Other long term (current) drug therapy; Z79.1 Long term (current) use of non-steroidal anti-inflammatories (NSAID)
CPT/HCPCS: 36415; 74177; 80053; 81003; 83690; 85025; 96361; 96374; 96375; 99284; 99285; J1885; J2405; Q9967

== ENCOUNTER 2022-11-17 11:00 | Outpatient (AMB) | payer OTHER, SELFPAY ==
[2022-11-17 11:20] VITALS: BP 112/70; PULSE 83; O2SAT 98
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
== END 2022-11-17 12:08 | disposition home or self-care (01) ==
PROVIDERS: PCP Internal Medicine Cardiovascular Disease; Visit Provider Internal Medicine
DX: S20.219A Contusion of unspecified front wall of thorax, initial encounter (principal)
CPT/HCPCS: 99214

== ENCOUNTER 2022-11-17 11:40 | Outpatient (REF) | payer OTHER, SELFPAY ==
--- NOTE | ~2022-11-17 | XR_ITS ---
EXAMINATION: XR CHEST CLINICAL INFORMATION: Chest wall contusion. COMPARISON: None available. TECHNIQUE: 2 views of the chest were obtained. FINDINGS: The lungs are clear. The cardiomediastinal silhouette is normal in size. There is no pleural effusion or pneumothorax. No acute osseous abnormality. XR/XR chest 2V IMPRESSION: No acute cardiopulmonary findings.
== END 2022-11-17 11:41 | disposition home or self-care (01) ==
LOC: HO.HMGCX 11:40
PROVIDERS: Visit Provider Internal Medicine
DX: S20.219A Contusion of unspecified front wall of thorax, initial encounter (principal)
CPT/HCPCS: 71046

== ENCOUNTER 2023-03-09 15:27 | Outpatient (REF) | payer OTHER, SELFPAY | END 2023-03-09 15:28 | disposition home or self-care (01) | LOC: HO.SH 15:27 | PROVIDERS: Visit Provider Nurse Practitioner Family | DX: Z01.118 Encounter for examination of ears and hearing with other abnormal findings (principal); H93.11 Tinnitus, right ear | CPT/HCPCS: 92552; 92555 ==

== ENCOUNTER 2023-04-14 12:42 | Outpatient (REF) | payer OTHER, SELFPAY | END 2023-04-14 12:43 | disposition home or self-care (01) | LOC: HO.SH 12:42 | PROVIDERS: Visit Provider Nurse Practitioner Family | DX: Z01.118 Encounter for examination of ears and hearing with other abnormal findings (principal); H90.11 Conductive hearing loss, unilateral, right ear, with unrestricted hearing on the contralateral side | CPT/HCPCS: 92553; 92567 ==

== ENCOUNTER 2023-06-22 10:45 | Observation (INO) | payer OTHER, SELFPAY ==
[2023-06-22] VITALS (10 sets, daily range): BP systolic 108–143; BP diastolic 66–79; PULSE 88–121; RESP 16–22; TEMP 36.6–38.7; O2SAT 90–100; BMI 29.9
--- NOTE | ~2023-06-22 | XR_ITS ---
EXAMINATION: XR CHEST CLINICAL INFORMATION: Cough COMPARISON: None available. TECHNIQUE: 2 views of the chest were obtained. FINDINGS: No significant abnormality is noted involving the heart, lungs, mediastinum, bony thorax or soft tissues. XR/XR chest 2V IMPRESSION: Unremarkable chest examination.
--- NOTE | 2023-06-22 11:19 | ED.URI ---
HPI - URI/Sore Throat General Chief Complaint: Nausea/Vomiting/Diarrhea Stated Complaint: Flu Symptoms Time Seen by Provider: 06/22/23 13:28 Source: patient and family (mother) Mode of arrival: ambulatory Limitations: no limitations History of Present Illness HPI Narrative: This is a 43-year-old male history of alcohol use disorder, NSAIDs long-term use, presenting to the emergency department for evaluation of fatigue, malaise, myalgia, nausea, vomiting, diarrhea, intermittent cramping, cough, shortness of breath and slight chest tightness since last night. Mother who patient lives with had a cough and similar sx. He got nervous because his vomit was dark brown. No blood clots noted or blood but just dark. Had a few episodes last night and one episode. Related Data Home Medications Medication Instructions Recorded Confirmed famotidine 20 mg tablet 20 mg PO BID 10/27/22 Previous Rx's Medication Instructions Recorded omeprazole 40 mg capsule,delayed 40 mg PO DAILY #30 caps 09/20/22 release sucralfate 100 mg/mL oral 10 ml PO BID #420 mL 09/20/22 suspension (Carafate) Allergies Allergy/AdvReac Type Severity Reaction Status Date / Time No Known Allergies Allergy Verified 06/22/23 11:21 [No Known Allergies*] Review of Systems Review of Systems: Yes all other systems are reviewed and are negative PMFSH Past Medical History Attestation statement: The following information was validated with the patient. Source: old records reviewed and nursing notes reviewed Medical History No pertinent past medical history Social History Social History Alcohol intake: current Alcohol intake frequency: a few times a week Alcohol type: beer Patient Tobacco Use Status: Current everyday Tobacco user Smoked in Last 30 Days: No Use of substances other than those prescribed or required for medical reasons: Yes Substance Use Type: Marijuana Advance Directives: No Physical Exam Vital Signs: Vital Signs: Last Vital Signs Temp 101.7 F H 06/22/23 14:23 Pulse 118 H 06/22/23 14:23 Resp 20 06/22/23 14:23 BP 108/67 06/22/23 14:23 Pulse Ox 93 03/19/24 14:23 O2 Del Method Room Air 06/22/23 14:23 BMI result Body Mass Index 29.9 vss Appearance: Alert.? Oriented X3.? No acute distress.? Head: Normocephalic, atraumatic, no step-offs or deformities Eyes: Pupils equal, round and reactive to light.? Neck: Normal inspection.? Neck supple.? CVS: Normal heart rate and rhythm.? Pulses normal.? Respiratory: No respiratory distress.? Breath sounds faint wheezing b/l.? Abdomen: Soft and nontender.? Skin: Skin warm and dry.? Normal skin color.? Normal skin turgor.? Extremities: No lower extremity edema.? No calf ttp. 5/5 strength to bilateral upper and lower extremities Neuro: Oriented X 3.? No motor deficit.? No sensory deficit. CN 2-12 intact Course Course Course Narrative: This is an RME: Additional HPI, ROS, PE not included below will be deferred to primary provider. This is a [id number]-male presenting to the ER with complaints of cough, abdominal pain, nausea, vomiting, subjective fevers, diarrhea since yesterday. Reports that he had an episode of dark vomit last night and this morning. He drinks daily - typically 5-6 beer per day. Plan: Labs, Viral swabs, CXR Reevaluation(s) Reevaluation #1: CBC unremarkable. Appears to be around patient's baseline. With a normocytic anemia. Chemistry no acute findings requiring intervention. Normal lipase. Patient is influenza positive. Likely contributing to patient's symptoms. X-ray unremarkable. Due to chest pressure/discomfort added a troponin and EKG, EKG with some changes. Serial troponins pending. to r/o pericarditis and myocarditis Time: 13:50 Reevaluation #2: I did run this case by cardiology who recommends doing another troponin at 3 or 04:00 o'clock, as long as troponin is negative and patient is pain-free patient to be discharged home. Will wait for 2nd troponin. Time: 14:24 Reevaluation #3: Patient febrile, ibuprofen ordered. Time: 14:26 Additional Reevaluation(s): 1543 Patient 90% sitting at rest. He is feeling short of breath and with some chest pressure still. Second troponin negative. Ischemic changes on EKG. Cardiology recommends admitting patient overnight to monitor. Medications Administered Generic Name Dose Route Start Last Admin Trade Name Sophia PRN Reason Stop Dose Admin Sodium Chloride 500 mls @ 500 mls/hr 06/22/23 14:45 06/22/23 14:47 Ns IV 06/22/23 15:44 500 mls/hr .Q1H MEL Administration Discontinued Medications Generic Name Dose Route Start Last Admin Trade Name Sophia PRN Reason Stop Dose Admin Ibuprofen 600 mg 06/22/23 14:26 06/22/23 14:37 Ibuprofen 600 Mg Tablet PO 06/22/23 14:27 600 mg ONCE ONE Administration Ondansetron HCl 4 mg 06/22/23 14:47 06/22/23 14:56 Ondansetron Hcl 4 Mg/2 Ml Vial IVPUSH 06/22/23 14:48 4 mg ONCE ONE Administration Medical Decision Making Medical Decision Making [facility] Narrative: 1346 43 yo M presents w/ URI sx since lasat night PE w/ faint wheezing b/l Hx an pe concerning for URI vs bronchitis vs flu vs covid vs rsv. Unlikley acute abdomen, acs, pe, ards, pneumothorax. Plan- labs, imaging, ekg, viral test Differential Diagnosis Differential Diagnoses: The differential diagnosis associated with the presentation includes Hx an pe concerning for URI vs bronchitis vs flu vs covid vs rsv. Unlikley acute abdomen, acs, pe, ards, pneumothorax. Admission/Observation Consideration of admission/observation: Escalation of care including admission/observation considered Possible Consult Healthcare Provider Management of the patient was discussed with: Band Manager (cardiology ) Lab Data [facility] Lab Attestation statement: I reviewed the patient's lab results. 06/22/23 12:21 06/22/23 12:21 Labs: Lab Results 06/22/23 06/22/23 Range/Units 12:21 15:00 WBC 5.2 (4.8-10.8) X10*3/uL RBC 4.51 L (4.60-5.80) X10*6/uL Hgb 13.8 L (14.0-18.0) g/dl Hct 39.8 L (42.0-52.0) % MCV 88.2 (80.0-98.0) fL MCH 30.6 (27.0-33.0) pg MCHC 34.7 (31.0-36.0) g/dl RDW 11.8 (11.0-16.0) % Plt Count 197 D (160-400) X10*3/uL MPV 9.2 L (9.4-12.4) fL Immature Gran % (Auto) 0.4 (0.0-0.4) % Neut % (Auto) 76.3 H (45-73) % Lymph % (Auto) 5.0 L (20-40) % [place] % (Auto) 16.4 H (2-11) % Eos % (Auto) 1.7 (0-4) % Baso % (Auto) 0.2 (0-2) % Lymph # (Auto) 0.3 L (1.2-4.9) X10*3/uL [place] # (Auto) 0.9 (0.1-1.2) X10*3/uL Eos # (Auto) 0.1 (0.0-0.4) X10*3/uL Baso # (Auto) 0.0 (0.0-0.2) X10*3/uL Abs Immat Gran (auto) 0.02 (0.00-0.03) X10*3/uL Absolute Neuts (auto) 4.0 (2.0-8.3) x10*3/uL Absolute Nucleated RBC 0.000 (0.0-0.012) X10*3/uL Nucleated RBC % (auto) 0.0 (0.0-0.2) /100WBC Sodium 137 (135-145) mmol/L Potassium 3.9 (3.3-5.1) mmol/L Chloride 102 (96-108) mmol/L Carbon Dioxide 25 (22-29) mmol/L Anion Gap 14 (12-20) BUN 10 (9-16) mg/dL Creatinine 1.22 (0.5-1.4) mg/dL Estim Creat Clear Calc 80.9 Estimated GFR > 60 Random Glucose 102 (60-115) mg/dL Calcium 9.3 (8.4-10.2) mg/dL Magnesium 1.7 (1.6-2.6) mg/dL Total Bilirubin 0.7 (0.0-1.0) mg/dL Direct Bilirubin 0.2 (0.0-0.5) mg/dL AST 18 (5-37) U/L ALT 14 (0-40) U/L Alkaline Phosphatase 81 (39-117) U/L Troponin I High Sens < 2.7 < 2.7 (<3.5-35.0) ng/L Total Protein 7.7 (6.5-8.0) g/dL Albumin 4.6 (3.5-5.0) g/dL Lipase 13 (8-78) U/L Influenza Type A (PCR) POSITIVE A (Negative) Influenza Type B (PCR) NEGATIVE (Negative) RSV RNA Qual (PCR) NEGATIVE (Negative) SARS-CoV-2 RNA (RT-PCR) NEGATIVE (Negative) Independent Interpretation I performed an independent interpretation of an: EKG (There is some ST elevations in the lateral leads and some depressions in V1. Will obtain troponins.) and Plain X-Ray Radiology Impression Discussion of test interpretation with radiology: I have reviewed the radiologist's reading. Chronic Conditions Patient?s care impacted by: Other (current daily drinker ) Social Determinants Patient?s care significantly limited by Social Determinants of Health including: Alcoholism and drug addiction in family Core Measures AMI core measures followed: Yes Measure exclusions: not indicated Critical Care Time Critical Care Time Critical Care Time: Yes Total Critical Care Time: 35 Attestation: I attest to this time spent taking care of the patient, obtaining history, physical, reviewing labs, imaging, speaking to my attending, speaking to specialist. Discharge Plan Discharge Clinical Impression: Influenza A, Nausea & vomiting, Chest pressure Patient Disposition: Home, Self-Care Instructions: Influenza (ED) Additional Instructions: Take your medications as prescribed. If you were prescribed antibiotics today, it is important that you take your medication to their entirety, do not skip any doses, do not finish them early. Follow-up with your primary care provider this week. Return to the emergency department with new or worsening symptoms. Such as fevers, chills, chest pain, shortness of breath, nausea, vomiting, dizziness, headache, vision changes, lethargy In case of emergency call 911 XR/XR chest 2V IMPRESSION: Unremarkable chest examination. Prescriptions: Discontinued cyclobenzaprine 5 mg tablet 5 mg PO BEDTIME meloxicam 15 mg tablet 15 mg PO DAILY Qty: 14 0RF No Action omeprazole 40 mg capsule,delayed release(DR/EC) 40 mg PO DAILY Qty: 30 0RF sucralfate [Carafate] 100 mg/mL suspension 10 ml PO BID Qty: 420 0RF famotidine 20 mg tablet 20 mg PO BID Referrals: Christa Dash FNP [Primary Care Provider] - 2 days Stand Alone Forms: Work/School Release
[2023-06-22 12:27] LABS: MANUAL DIFF FLAG NO
[2023-06-22 12:28] LABS: Basophils Percent Auto 0.2 % (0-2); Eosinophils Absolute Auto 0.1 X10*3/uL (0.0-0.4); Eosinophils Percent Auto 1.7 % (0-4); Hematocrit 39.8 % (42.0-52.0); Hemoglobin 13.8 g/dl (14.0-18.0); Imm Gran Abs Auto 0.02 X10*3/uL (0.00-0.03); Imm Gran Pct Auto 0.4 % (0.0-0.4); Lymphocytes Absolute Auto 0.3 X10*3/uL (1.2-4.9); Mean Corpuscular HGB Conc 34.7 g/dl (31.0-36.0); Mean Corpuscular Hemoglobin 30.6 pg (27.0-33.0); Mean Corpuscular Volume 88.2 fL (80.0-98.0); Mean Platelet Volume 9.2 fL (9.4-12.4); Monocytes Absolute Auto 0.9 X10*3/uL (0.1-1.2); Monocytes Percent Auto 16.4 % (2-11); Neutrophils Percent Auto 76.3 % (45-73); Platelet Count 197 X10*3/uL (160-400); Red Blood Count 4.51 X10*6/uL (4.60-5.80); Red Cell Distribution Width 11.8 % (11.0-16.0); White Blood Count 5.2 X10*3/uL (4.8-10.8)
[2023-06-22 12:43] LABS: Alanine Aminotransferase 14 U/L (0-40); Albumin Level 4.6 g/dL (3.5-5.0); Alkaline Phosphatase 81 U/L (39-117); Anion Gap 14 (12-20); Aspartate Amino Transferase 18 U/L (5-37); Bilirubin Direct 0.2 mg/dL (0.0-0.5); Bilirubin Total 0.7 mg/dL (0.0-1.0); Blood Urea Nitrogen 10 mg/dL (9-16); Calcium 9.3 mg/dL (8.4-10.2); Carbon Dioxide 25 mmol/L (22-29); Chloride 102 mmol/L (96-108); Creatinine Clr Calc Pharmacy 80.9; Estimated Glomerular Filt Rate > 60; Glucose Random 102 mg/dL (60-115); Lipase 13 U/L (8-78); Magnesium 1.7 mg/dL (1.6-2.6); Potassium 3.9 mmol/L (3.3-5.1); Sodium 137 mmol/L (135-145); Total Protein 7.7 g/dL (6.5-8.0)
[2023-06-22 13:04] LABS: Influenza A PCR POSITIVE (Negative); Influenza B PCR NEGATIVE (Negative); Resp Syncy Virus RNA Qual PCR NEGATIVE (Negative); SARS COV2 PCR INHOUSE NEGATIVE (Negative)
--- NOTE | 2023-06-22 13:38 | ECG_ITS ---
Test Reason : CP Blood Pressure : / mmHG Vent. Rate : 127 BPM Atrial Rate : 127 BPM P-R Int : 150 ms QRS Dur : 068 ms QT Int : 286 ms P-R-T Axes : 050 028 033 degrees QTc Int : 415 ms Sinus tachycardia Nonspecific ST and T wave abnormality Abnormal ECG When compared with ECG of 28-APR-2022 08:50, Vent. rate has increased BY 46 BPM Non-specific change in ST segment in Anterior leads T wave inversion now evident in Anterior leads Referred By: Aviva Kelly Electronically Signed By:CHELSIE FLORES
[2023-06-22 14:16] LABS: Troponin-I High Sensitivity < 2.7 ng/L (<3.5-35.0)
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
[2023-06-22] MEDS: Ibuprofen 600 MG TABLET PO (14:37)
[2023-06-22] MEDS: 0.9 % Sodium Chloride 500 ML IV (14:47)
[2023-06-22] MEDS: ondansetron HCL 4 MG/2 ML VIAL IVPUSH (14:56)
[2023-06-22 15:31] LABS: Troponin-I High Sensitivity < 2.7 ng/L (<3.5-35.0)
--- NOTE | 2023-06-22 15:58 | PM.IMHP ---
History of Present Illness Date of Service: 06/22/23 Chief Complaint: flu 43-year-old man with no significant medical history presents to the with complaints of 48 hours of feeling unwell, cough. Denies any recent travel, sick contacts. Reported fever, chills, nausea, vomiting, no diarrhea. Reported some substernal chest pain with coughing without radiation or other associated symptoms. In the ER, labs found to be within acceptable limits. Fever of 101.7, heart rate 118, oxygen saturation 90% on room air. Chest x-ray negative consolidation or effusion. EKG showed T-wave abnormality to the anterior leads, normal troponin x2. Plan will be to place patient on observation for abnormal EKG and influenza a without hypoxia. Review of Systems Review of Systems: Denies any recent fever chills or decrease in appetite respiratory see HPI cardiovascular see HPI gastrointestinal see HPI genitourinary denies any dysuria frequency or hematuria musculoskeletal denies any joint pain or swelling neuropsych denies any weakness or seizures all other systems reviewed are negative [facility] Medical History No pertinent past medical history Surgical History (Updated 06/22/23 @ 16:33 by Gertrude Martines NP) No pertinent past surgical history Social History Alcohol intake: current Alcohol intake frequency: a few times a week Alcohol type: beer Patient Tobacco Use Status: Current everyday Tobacco user Smoked in Last 30 Days: No Use of substances other than those prescribed or required for medical reasons: Yes Substance Use Type: Marijuana Advance Directives: No Meds Allergies Allergy/AdvReac Type Severity Reaction Status Date / Time No Known Allergies Allergy Verified 06/22/23 11:21 [No Known Allergies*] Home Medications Medication Instructions Recorded Confirmed Last Taken Type hydroxyzine HCl 25 mg tablet 25 - 50 mg PO DAILY 06/22/23 06/22/23 06/15/23 History inulin 2 gram chewable tablet 2 g PO DAILY PRN Constipation 06/22/23 06/22/23 Unknown History (Fiber Gummies) Physical Exam Vital Signs and Narrative: Vital Signs: Last Vital Signs Temp 101.7 F H 06/22/23 14:23 Pulse 121 H 06/22/23 15:50 Resp 22 H 06/22/23 15:50 BP 108/67 06/22/23 14:23 Pulse Ox 90 L 06/22/23 15:50 O2 Del Method Room Air 06/22/23 15:50 BMI result Body Mass Index 29.9 Appearing in no acute distress head is normocephalic atraumatic eyes pupils are PERRLA sclera is anicteric mouth throat mucous membranes are intact and moist neck is supple no lymphadenopathy, no JVD noted lung sounds are clear to auscultation heart regular rate rhythm, clear S1, S2 positive bowel sounds, abdomen is soft, nontender neuro patient is alert x3, no focal deficits Results Labs 06/22/23 12:21 06/22/23 12:21 Labs: Laboratory Results - last 24 hr 06/22/23 06/22/23 12:21 15:00 MCV 88.2 MCH 30.6 MCHC 34.7 RDW 11.8 Plt Count 197 D MPV 9.2 L Immature Gran % (Auto) 0.4 Neut % (Auto) 76.3 H Lymph % (Auto) 5.0 L [place] % (Auto) 16.4 H Eos % (Auto) 1.7 Baso % (Auto) 0.2 Lymph # (Auto) 0.3 L [place] # (Auto) 0.9 Eos # (Auto) 0.1 Baso # (Auto) 0.0 Abs Immat Gran (auto) 0.02 Absolute Neuts (auto) 4.0 Absolute Nucleated RBC 0.000 Nucleated RBC % (auto) 0.0 Anion Gap 14 Estim Creat Clear Calc 80.9 Estimated GFR > 60 Random Glucose 102 Calcium 9.3 Magnesium 1.7 Total Bilirubin 0.7 Direct Bilirubin 0.2 AST 18 ALT 14 Alkaline Phosphatase 81 Troponin I High Sens < 2.7 < 2.7 Total Protein 7.7 Albumin 4.6 Lipase 13 Influenza Type A (PCR) POSITIVE A Influenza Type B (PCR) NEGATIVE RSV RNA Qual (PCR) NEGATIVE SARS-CoV-2 RNA (RT-PCR) NEGATIVE Imaging Radiologist's Impressions: Impressions Chest X-Ray 06/22/23 11:31 IMPRESSION: Unremarkable chest examination. Assessment and Plan (1) Chest pressure: Status: Acute (2) Influenza A: Status: Acute Plan 43-year-old man admitted with influenza and EKG changes Viral sepsis secondary to Influenza a No hypoxia noted Will start Tamiflu Supplemental oxygen as needed Supportive care EKG changes substernal chest pain with coughing negative troponin x2 T-wave abnormality to anterior leads consult Cardiology Monitor on telemetry Normocytic anemia No bleeding Stable H&H Smoker Nicotine replacement therapy DVT prophylaxis Lovenox Full code OBS Quality Stroke Does the patient have a stroke diagnosis?: No VTE Prior VTE?: No VTE Risk Level:: Medical - moderate - high VTE Device Contraindication: Treatment Not Indicated VTE Drug Contraindication: N/A - Med Ordered
--- NOTE | 2023-06-22 16:14 | ECG_ITS ---
Test Reason : EKG CHANGES Blood Pressure : / mmHG Vent. Rate : 095 BPM Atrial Rate : 095 BPM P-R Int : 172 ms QRS Dur : 078 ms QT Int : 332 ms P-R-T Axes : 050 025 -04 degrees QTc Int : 417 ms Normal sinus rhythm Nonspecific T wave abnormality Abnormal ECG When compared with ECG of 22-JUN-2023 13:40, Nonspecific T wave abnormality has replaced inverted T waves in Anterior leads Referred By: Gertrude Martines Electronically Signed By:CHELSIE FLORES
[2023-06-22] MEDS: methylPREDNISolone Sod Succ 125 MG/2 ML VIAL IVPUSH (16:20)
[2023-06-22] MEDS: Albuterol Sulfate 2.5 MG, Albuterol/Iprat 2.5/0.5MG 3 ML 3 ML INHALE (16:22)
[2023-06-22] MEDS: Enoxaparin Sodium 40 MG/0.4 ML SYRINGE SUBCUT (16:32)
--- NOTE | 2023-06-22 16:40 | PHA.MEDREC ---
Pharmacy Consult ? Medication Reconciliation Pharmacy has completed the medication reconciliation. Confirmed medications with patient. He is only taking Hydroxyzine 25mg and has not taken it in a week.
--- NOTE | 2023-06-23 | ECG_ITS ---
Test Reason : abn ekg Blood Pressure : / mmHG Vent. Rate : 084 BPM Atrial Rate : 084 BPM P-R Int : 168 ms QRS Dur : 078 ms QT Int : 346 ms P-R-T Axes : 056 025 -04 degrees QTc Int : 408 ms Normal sinus rhythm Nonspecific ST and T wave abnormality Abnormal ECG When compared with ECG of 22-JUN-2023 16:14, No significant change was found Referred By: Remington No Electronically Signed By:CHELSIE FLORES
[2023-06-23 04:00] VITALS: BP 140/83; PULSE 105; RESP 16; TEMP 37.1; O2SAT 97
[2023-06-23] MEDS: ondansetron HCL 4 MG/2 ML VIAL IVPUSH (04:33)
[2023-06-23 05:44] LABS: MANUAL DIFF FLAG NO
[2023-06-23 05:50] LABS: Hematocrit 37.5 % (42.0-52.0); Hemoglobin 13.2 g/dl (14.0-18.0); Imm Gran Abs Auto 0.02 X10*3/uL (0.00-0.03); Imm Gran Pct Auto 0.4 % (0.0-0.4); Lymphocytes Absolute Auto 0.4 X10*3/uL (1.2-4.9); Lymphocytes Percent Auto 7.7 % (20-40); Mean Corpuscular HGB Conc 35.2 g/dl (31.0-36.0); Mean Corpuscular Hemoglobin 30.7 pg (27.0-33.0); Mean Corpuscular Volume 87.2 fL (80.0-98.0); Mean Platelet Volume 9.4 fL (9.4-12.4); Monocytes Absolute Auto 0.4 X10*3/uL (0.1-1.2); Monocytes Percent Auto 8.9 % (2-11); Neutrophils Absolute Auto 4.1 x10*3/uL (2.0-8.3); Platelet Count 198 X10*3/uL (160-400); Red Cell Distribution Width 11.8 % (11.0-16.0)
[2023-06-23 06:08] LABS: Alanine Aminotransferase 14 U/L (0-40); Albumin Level 4.3 g/dL (3.5-5.0); Alkaline Phosphatase 69 U/L (39-117); Anion Gap 16 (12-20); Aspartate Amino Transferase 18 U/L (5-37); Bilirubin Total 0.6 mg/dL (0.0-1.0); Blood Urea Nitrogen 15 mg/dL (9-16); Calcium 9.2 mg/dL (8.4-10.2); Carbon Dioxide 22 mmol/L (22-29); Chloride 104 mmol/L (96-108); Creatinine Clr Calc Pharmacy 88.2; Estimated Glomerular Filt Rate > 60; Glucose Random 160 mg/dL (60-115); Potassium 3.7 mmol/L (3.3-5.1); Sodium 138 mmol/L (135-145); Total Protein 7.3 g/dL (6.5-8.0)
--- NOTE | 2023-06-23 07:00 | CA_ITS ---
Transthoracic Echocardiogram Patient (Last, First, Middle): Noel Madsen T Gender: Male Date of : 1980 Age: 43 Procedure Date: 06/23/2023 Procedure Type: Transthoracic [place] [facility] [place]: 167.64 cm Weight: 70.31 kg BSA: 1.79 m2 Heart Rate: bpm BP: 124 / 74 mmHg Professor Of Mathematics: Referring MD: Harmeet Winston MD Symptoms: chest pain Study Quality: Fair ECG Rhythm: Sinus Conclusions: - The left ventricular systolic function is normal. The calculated ejection fraction is 57% by biplane method. - No obvious valvular pathology seen on this study. Findings Left Ventricle Normal left ventricular cavity size. There is normal left ventricular wall thickness. The left ventricular systolic function is normal. The calculated ejection fraction is 57% by biplane method. There is no evidence of regional wall motion abnormalities. Diastolic function is normal for age. Right Ventricle Normal right ventricular cavity size and systolic function. Atria Both atria are normal in size. Aortic Valve There is a normal trileaflet aortic valve. There is no aortic valve stenosis. There is no aortic valve regurgitation. Mitral Valve The mitral valve appears normal. There is trace mitral valve regurgitation. There is no mitral valve stenosis. Pulmonic Valve The pulmonic valve is likely normal. Tricuspid Valve Normal tricuspid valve structure. There is no tricuspid valve regurgitation. There is no evidence of pulmonary hypertension. Great Vessels The asc aorta is normal in size. Venous The inferior vena cava is normal in size and collapses greater than 50% with inspiration. Pericardium/Pleural There is no evidence of pericardial effusion. Prior Study Comparison No prior study available for comparison. Recommendations, Care & Conclusions No obvious valvular pathology seen on this study. Measurements 2D Linear Measurements IVSd: 1.02 0.6-0.9/0.6-1.0 cm LVIDd: 4.40 3.9-5.3/4.2-5.9 cm LVIDd Index: 2.46 2.4-3.2/2.2-3.1 cm/m2 LVIDs: 2.60 2.0-3.6 cm LVPWd: 1.04 0.7-1.1 cm LA Diam: 3.20 2.7-3.8/3.0-4.0 cm LAIDs Index: 1.79 1.5-2.3 cm/m2 LV Mass: 191.78 67-162/88-224 g LV Mass Index: 107.14 43-95/49-115 g/m2 LVOT Diam: 2.20 3.0+(-)1.3 cm 2D Systolic Function EF 4C: 57.20 >55% EF 2C: 57.90 >55% EF BiP: 56.50 >55% Mitral Valve MV Pk E: 0.98 MV PK A: 0.64 MV Decel Time: 164.00 E/A: 1.50 E'Lateral: 13.70 E'Medial: 10.40 E/E' Med: 9.40 E/E' Lat: 7.20 PHT: 48.00 MVA PHT: 4.58 Decel Ray: 5.99 Aortic Valve AoV Pk Clifford: 1.36 AoV Mn Clifford: 0.96 AoV VTI: 0.29 AoV Pk Grad: 7.00 Aov Mn Grad: 4.00 GLORIA Cont.VTI: 2.58 LVOT LVOT Pk Clifford: 0.97 LVOT Mn Clifford: 0.63 LVOT VTI: 0.19 LVOT Pk Grad: 4.00 LVOT Mn Grad: 2.00 LVOT Diam: 2.20 LVOT Area: 3.80 Diastolic Function MV Pk E: 0.98 MV Pk A: 0.64 E/A: 1.50 E'Medial: 10.40 E/E' Med: 9.40 E' Laterial: 13.70 E/E' Lat: 7.20 Right Ventricle TAPSE (mm): 27.70 TVS' Clifford: 14.80 Tricuspid Valve TR Pk Clifford: 1.97 TR Pk Grad: 16.00 RA Press: 3.00 RVSP: 19.00 Great Vessels Aorta Sinus of Valsalva: 3.40 2.0-3.5 cm Ao Asc: 3.00 2.1-3.4 cm Pulmonary Valve PV Pk Clifford: 1.10 Peak PV Grad: 5.00 Updated in Other Vendor System with Status of Final Harmeet Winston MD electronically signed on 06/23/2023 10:55:07 AM with status of Final
[2023-06-23 07:09] VITALS: BP 124/74; PULSE 101; RESP 18; TEMP 37.9; O2SAT 97
[2023-06-23] MEDS: Acetaminophen 325 MG TABLET 650 MG PO (07:34)
[2023-06-23] MEDS: 0.9 % Sodium Chloride Flush 3 ML SYRINGE IVFLUSH (07:37)
--- NOTE | 2023-06-23 08:17 | MHC.CM.PN ---
CM met with Patient at bedside and addressed BARRIOS with him, providing Patient with the original and a copy has been placed on the chart. 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 Home self care is the goal and CM has initiated and will follow for dc planning. PCP is Dr. Christa Dash.
--- NOTE | 2023-06-23 09:39 | P.CONCA_ITS ---
History of Present Illness History of Present Illness Date of Service: 06/23/23 Chief complaint: Flu EKG Changes Narrative: This is a cardiology consultation regarding chest pain. Patient is here for feeling of generally unwell, cough. He was having fever, tachycardia and decreased oxygen saturation. He has been diagnosed with influenza. In this context, EKG was thought to be abnormal with anterior T inversions. He is also complaining of chest pain and hence was admitted. Overall, patient complaints of aches and pains all over the body. He does not feel good from the acute viral infection. He does have chest discomfort as well but that seems to be part of the overall pains. The chest pain itself gets worse with breathing. Suspect rather pleuritic pain. Review of Systems 2 Review of Systems: Yes all other systems are reviewed and are negative Constitutional: Constitutional: Reports as per HPI, Reports no additional constitutional complaints, Reports excessive sweating, Reports fatigue, Reports fever(s), Reports lethargy, Reports malaise, Reports night sweats and Reports poor appetite Eyes: Eyes: Reports as per HPI and Denies no additional eye complaints ENT: Denies system reviewed and no additional complaints, except as documented and Reports as per HPI Cardiovascular: Cardiovascular: Reports as per HPI, Reports no additional cardiovascular complaints, Denies acrocyanosis, Denies cool extremities, Reports chest pain, Denies leg edema, Denies lightheadedness, Denies palpitations and Denies dyspnea Respiratory: Respiratory: Reports as per HPI, Denies no additional respiratory complaints and Denies dyspnea Gastrointestinal: Gastrointestinal: Reports as per HPI and Denies no additional gastrointestinal complaints Genitourinary: Genitourinary: Reports no additional male genitourinary complaints and Reports as per HPI Musculoskeletal: Musculoskeletal: Reports no additional musculoskeletal complaints and Reports as per HPI Integumentary/Breasts: Skin/Breast: Reports system reviewed and no additional complaints, except as docu Neurologic: Reports system reviewed and no additional complaints, except as documented and Reports as per HPI Psychiatric: Psychiatric: Reports no additional psychiatric complaints and Reports as per HPI Endocrine: Endocrine: Reports no additional endocrine complaints, Reports as per HPI, Reports excessive sweating, Reports fatigue and Denies palpitations Hematologic/Lymphatic: Hematologic/Lymphatic: Reports no additional hematologic/lymphatic complaints and Reports as per HPI Allergic/Immunologic: Allergic/Immunologic: Reports no additional allergic/immunologic complaints and Reports as per HPI [facility] Past Medical History Medical History No pertinent past medical history Family History Pertinent family history: Patient denies any significant family history with regard to premature CAD. Surgical History Surgical History (Updated 06/22/23 @ 16:33 by Gertrude Martines NP) No pertinent past surgical history Social History Social History Household Members: Family Housing: House Do you presently have visiting nurse or other home services: No Alcohol intake: current Alcohol intake frequency: a few times a week Alcohol type: beer Patient Tobacco Use Status: Never used Tobacco Substance Use Type: Marijuana service: No Meds Allergies Allergy/AdvReac Type Severity Reaction Status Date / Time No Known Allergies Allergy Verified 06/22/23 11:21 [No Known Allergies*] Active Medications: Current Medications Acetaminophen (Acetaminophen 325 Mg Tablet) 650 mg PO Q6H PRN PRN Reason: Pain, Mild (Pain Scale 1-3) Last Admin: 06/23/23 07:34 Dose: 650 mg Enoxaparin Sodium (Enoxaparin Sodium 40 Mg/0.4 Ml Syringe) 40 mg SUBCUT Q24H MEL Last Admin: 06/22/23 16:32 Dose: 40 mg Ibuprofen (Ibuprofen 400 Mg Tablet) 400 mg PO Q6H PRN PRN Reason: Pain, Moderate(Pain Scale 4-6) Nicotine Polacrilex (Nicotine Polacrilex 2 Mg Gum) 2 mg BUCCAL Q2H PRN PRN Reason: withdrawal Ondansetron HCl (Ondansetron Hcl 4 Mg/2 Ml Vial) 4 mg IVPUSH Q8H PRN PRN Reason: Nausea and Vomiting Last Admin: 06/23/23 04:33 Dose: 4 mg Sodium Chloride (0.9 % Sodium Chloride Flush 3 Ml Syringe) 3 ml IVFLUSH QSHIFT [facility] Last Admin: 06/23/23 07:37 Dose: 3 ml Home Medications Medication Instructions Recorded Confirmed Last Taken Type hydroxyzine HCl 25 mg tablet 25 - 50 mg PO DAILY 06/22/23 06/22/23 06/15/23 History inulin 2 gram chewable tablet 2 g PO DAILY PRN Constipation 06/22/23 06/22/23 Unknown History (Fiber Gummies) Physical Exam 2 Vital Signs: Vital Signs: Last Vital Signs Temp 100.3 F 06/23/23 07:09 Pulse 101 H 06/23/23 07:09 Resp 18 06/23/23 07:09 BP 124/74 06/23/23 07:09 Pulse Ox 97 06/23/23 07:09 O2 Del Method Room Air 06/23/23 07:09 BMI result Body Mass Index 29.9 Const: General: comfortable, no acute distress, ill appearing and tired appearing Orientation/consciousness: patient oriented x3 HEENT: Other: Unremarkable Head: Yes normal to inspection Neck: Neck: Yes normal visual inspection Chest: Chest palpation & inspection: normal inspection of the chest Resp: Auscultation: clear to auscultation bilaterally Cardio: Palpation: normal PMI Heart sounds: S1 normal heart sound present, S2 normal heart sound present, no gallops, no murmurs and no rubs GI: Palpation (GI): Soft to palpation Back/Spine/Pelvis: Other: unremarkable Skin: General skin exam: no rashes or lesions noted Neuro: General: patient oriented x3 Extrem: General: Yes normal to inspection Psych: Mental Status: mental status grossly normal Objective Labs and Meds 06/23/23 05:20 06/23/23 05:20 Lab results: Laboratory Results - last 24 hr 06/22/23 06/22/23 06/23/23 12:21 15:00 05:20 WBC 5.2 5.0 RBC 4.51 L 4.30 L Hgb 13.8 L 13.2 L Hct 39.8 L 37.5 L MCV 88.2 87.2 MCH 30.6 30.7 MCHC 34.7 35.2 RDW 11.8 11.8 Plt Count 197 D 198 MPV 9.2 L 9.4 Immature Gran % (Auto) 0.4 0.4 Neut % (Auto) 76.3 H 83.0 H Lymph % (Auto) 5.[address] [place] % (Auto) 16.4 H 8.9 Eos % (Auto) 1.7 0.0 Baso % (Auto) 0.2 0.0 Lymph # (Auto) 0.[address] [place] [place] # (Auto) 0.9 0.4 Eos # (Auto) 0.1 0.0 Baso # (Auto) 0.0 0.0 Abs Immat Gran (auto) 0.02 0.02 Absolute Neuts (auto) 4.0 4.1 Absolute Nucleated RBC 0.000 0.000 Nucleated RBC % (auto) 0.0 0.0 Sodium 137 138 Potassium 3.9 3.7 Chloride 102 104 Carbon Dioxide 25 22 Anion Gap 14 16 BUN 10 15 Creatinine 1.22 1.12 Estim Creat Clear Calc 80.9 88.2 Estimated GFR > 60 > 60 Random Glucose 102 160 H Calcium 9.3 9.2 Magnesium 1.7 Total Bilirubin 0.7 0.6 Direct Bilirubin 0.2 AST 18 18 ALT 14 14 Alkaline Phosphatase 81 69 Troponin I High Sens < 2.7 < 2.7 Total Protein 7.7 7.3 Albumin 4.6 4.3 Lipase 13 Influenza Type A (PCR) POSITIVE A Influenza Type B (PCR) NEGATIVE RSV RNA Qual (PCR) NEGATIVE SARS-CoV-2 RNA (RT-PCR) NEGATIVE ECG Interpretation: EKGs reviewed. Initial EKG shows sinus tachycardia with nonspecific T-wave changes in the anterior leads. Minimally in the inferior leads. In the subsequent EKG, anterior changes much less prominent. In the repeat EKG from today, there are no anterior T changes. Subtle inferior nonspecific changes. Imaging Radiologist's impression: Impressions Chest X-Ray 06/22/23 11:31 IMPRESSION: Unremarkable chest examination. Assessment and Plan (1) Influenza A: Status: Acute (2) Chest pressure: Status: Acute Plan EKG as above with nonspecific ST-T changes but overall improved. High sensitivity troponin levels are normal x2. Repeat is pending. Chest pressure itself is likely pleuritic in nature. Overall, suspect it is all related to influenza. Do not think this is ACS or cardiac. We will review the echocardiogram once completed. Outpatient follow-up and can consider stress testing as outpatient. Procedures Date of Service Date of Service: 06/23/23
[2023-06-23 10:19] LABS: Troponin-I High Sensitivity < 2.7 ng/L (<3.5-35.0)
[2023-06-23 11:10] VITALS: BP 122/78; PULSE 91; RESP 18; TEMP 37.5; O2SAT 97
[2023-06-23] MEDS: guaiFENesin DM 200/20/10 ML 10 ML SYRUP PO (12:44)
--- NOTE | 2023-06-23 13:51 | MHC.CM.PN ---
Patient has been medically cleared for dc to home today, self care.
--- NOTE | 2023-06-23 13:55 | PM.DS ---
DS: Providers Provider Date of Service: 06/23/23 Date of admission: 06/22/23 16:01 Primary care physician: SARAH Chew Consults: 06/22/23 16:01 Consult to Cardiology Routine Consulting Provider: [facility] [place] [facility] Reason for consultation: EKG changes DS: Diagnosis Discharge Diagnosis (1) Influenza A: Status: Acute (2) Chest pressure: Status: Acute DS: Summary Hospital Course Hospital Course: History of presenting illness: Date of Service: 06/22/23 Chief Complaint: flu 43-year-old man with no significant medical history presents to the with complaints of 48 hours of feeling unwell, cough. Denies any recent travel, sick contacts. Reported fever, chills, nausea, vomiting, no diarrhea. Reported some substernal chest pain with coughing without radiation or other associated symptoms. In the ER, labs found to be within acceptable limits. Fever of 101.7, heart rate 118, oxygen saturation 90% on room air. Chest x-ray negative consolidation or effusion. EKG showed T-wave abnormality to the anterior leads, normal troponin x2. Plan will be to place patient on observation for abnormal EKG and influenza a without hypoxia. Hospital course: 43-year-old man admitted with influenza A infection as well as intermittent chest pain with nonspecific ST and T-wave changes patient admitted to telemetry unit in regard to influenza A patient was placed on Tamiflu, cough medication, his oxygenation remains stable, in regard to chest pain it seems noncardiac worse with coughing and reproducible, localized to mid chest , troponin x3 are negative, repeat EKG showed improvement, patient evaluated by lead esthetician they recommend outpatient follow-up and possible stress test since patient is hemodynamically stable he is being discharged to finish total 5 day course of Tamiflu he is recommended to rest drink fluids and continue symptomatic care with Tylenol and cough syrup. Discharge diagnosis Viral sepsis secondary to Influenza A Chest pain likely noncardiac Normocytic anemia Time Attestation Discharge Coordination Time (in mins): 32 Quality: Safe Use of Opioids Does Pt have an Active Cancer Diagnosis on the Problem List?: No Quality: Stroke Does the patient have a stroke diagnosis?: No Physical Exam Vital Signs: Vital Signs: Last Vital Signs Temp 99.5 F 06/23/23 11:10 Pulse 91 06/23/23 11:10 Resp 18 06/23/23 11:10 BP 122/78 06/23/23 11:10 Pulse Ox 97 06/23/23 11:10 O2 Del Method Room Air 06/23/23 11:10 BMI result Body Mass Index 29.9 Const: Other: General awake alert x3, in no acute distress. Neck supple no JVD. CVS regular rate rhythm, Anterior chest wall tenderness to palpation mid sternum Respiratory lungs clear to auscultation, no respiratory distress, no wheeze, no rhonchi. Gastrointestinal abdomen soft, non tender, bowel sounds audible. Extremities no edema. Neuro nonfocal . Skin no rash Psych appropriate affect DS: Data Data Completed and Pending Labs on day of discharge: Laboratory Results - last 24 hr 06/22/23 06/22/23 06/23/23 12:21 15:00 05:20 WBC 5.0 RBC 4.30 L Hgb 13.2 L Hct 37.5 L MCV 87.2 MCH 30.7 MCHC 35.2 RDW 11.8 Plt Count 198 MPV 9.4 Immature Gran % (Auto) 0.4 Neut % (Auto) 83.0 H Lymph % (Auto) 7.7 L [place] % (Auto) 8.9 Eos % (Auto) 0.0 Baso % (Auto) 0.0 Lymph # (Auto) 0.4 L [place] # (Auto) 0.4 Eos # (Auto) 0.0 Baso # (Auto) 0.0 Abs Immat Gran (auto) 0.02 Absolute Neuts (auto) 4.1 Absolute Nucleated RBC 0.000 Nucleated RBC % (auto) 0.0 Smear Path Review Cancelled Sodium 138 Potassium 3.7 Chloride 104 Carbon Dioxide 22 Anion Gap 16 BUN 15 Creatinine 1.12 Estim Creat Clear Calc 88.2 Estimated GFR > 60 Random Glucose 160 H Calcium 9.2 Total Bilirubin 0.6 AST 18 ALT 14 Alkaline Phosphatase 69 Troponin I High Sens < 2.7 < 2.7 Total Protein 7.3 Albumin 4.3 06/23/23 09:10 WBC RBC Hgb Hct MCV MCH MCHC RDW Plt Count MPV Immature Gran % (Auto) Neut % (Auto) Lymph % (Auto) [place] % (Auto) Eos % (Auto) Baso % (Auto) Lymph # (Auto) [place] # (Auto) Eos # (Auto) Baso # (Auto) Abs Immat Gran (auto) Absolute Neuts (auto) Absolute Nucleated RBC Nucleated RBC % (auto) Smear Path Review Sodium Potassium Chloride Carbon Dioxide Anion Gap BUN Creatinine Estim Creat Clear Calc Estimated GFR Random Glucose Calcium Total Bilirubin AST ALT Alkaline Phosphatase Troponin I High Sens < 2.7 Total Protein Albumin Discharge Plan Discharge Anticipated Discharge Date/Time: 06/23/23 13:28 Patient Disposition: Home, Self-Care Referrals: Christa Dash FNP [Primary Care Provider] - 2 days Discharge Medications: New dextromethorphan-guaifenesin 10-100 mg/5 mL Syrup 10 ml PO Q6H PRN (Reason: cough) Qty: 500 0RF oseltamivir [Tamiflu] 75 mg Capsule 75 mg PO Q12H Qty: 9 0RF Continued hydroxyzine HCl 25 mg tablet 25 - 50 mg PO DAILY Fiber Gummies 2 gram Tablet,Chewable 2 g PO DAILY PRN (Reason: Constipation) Discontinued cyclobenzaprine 5 mg tablet 5 mg PO BEDTIME meloxicam 15 mg tablet 15 mg PO DAILY Qty: 14 0RF Discharge Orders: Discharge Order (Routine); Ordered 06/23/23 Ordered By: Remington No Diet: Advance to usual diet Activity on Discharge: As tolerated Stand Alone Forms: Work/School Release Activity Restrictions/Additional Instructions: Follow-up with your primary care provider this week. Return to the emergency department with new or worsening symptoms. Such as fevers, chills, chest pain, shortness of breath, nausea, vomiting, dizziness, headache, vision changes, lethargy In case of emergency call 911 XR/XR chest 2V IMPRESSION: Unremarkable chest examination. Care Plan Goals: Influenza A infection take Tamiflu 1 tablet twice daily as directed Take cough medication as needed/rest Tylenol for pain Health Concerns: Continue home medications Plan of Treatment: Outpatient follow-up with Cardiology Dr. Winston to consider stress testing Assessment: As above Patient Instructions: Influenza (ED)
[2023-06-23] MEDS: Oseltamivir Phosphate 75 MG CAPSULE PO (14:00)
== END 2023-06-23 14:15 | disposition home or self-care (01) ==
LOC: HO.ED 14:28 → HO.EDOVER 16:06 → HO.IMC 19:22
PROVIDERS: Physician Assistant; Physician Assistant Medical; Admitting Provider Nurse Practitioner Acute Care; Emergency Provider Emergency Medicine; PCP Nurse Practitioner Family; Visit Provider Hospitalist
DX: A41.89 Other specified sepsis (principal); B97.89 Other viral agents as the cause of diseases classified elsewhere; J09.X2 Influenza due to identified novel influenza A virus with other respiratory manifestations; Z72.0 Tobacco use; R11.2 Nausea with vomiting, unspecified; R07.89 Other chest pain; R05.9 Cough, unspecified; R19.7 Diarrhea, unspecified; D64.9 Anemia, unspecified; R94.31 Abnormal electrocardiogram [ECG] [EKG]; R50.9 Fever, unspecified
CPT/HCPCS: 0241U; 36415; 71046; 80048; 80053; 80076; 83690; 83735; 84484; 85025; 93005; 93306; 94640; 96361; 96372; 96374; 96375; 96376; 99222; 99285; J1650; J2405; J2930; Q9957

== ENCOUNTER → 2023-06-22 13:38 | Outpatient (BNV) | payer OTHER, SELFPAY | PROVIDERS: Admitting Provider Nurse Practitioner Acute Care; Emergency Provider Emergency Medicine; PCP Nurse Practitioner Family; Visit Provider Internal Medicine | DX: R07.89 Other chest pain (principal) | CPT/HCPCS: 93010 ==

== ENCOUNTER 2023-06-22 16:01 | Outpatient (BNV) | payer OTHER, SELFPAY | END 2023-06-23 07:00 | PROVIDERS: Admitting Provider Nurse Practitioner Acute Care; Emergency Provider Emergency Medicine; PCP Nurse Practitioner Family; Visit Provider Internal Medicine | DX: R07.89 Other chest pain (principal); R94.31 Abnormal electrocardiogram [ECG] [EKG] | CPT/HCPCS: 93010; 93306 ==

== ENCOUNTER → 2023-06-22 16:01 | Outpatient (BNV) | payer OTHER, SELFPAY | PROVIDERS: Admitting Provider Nurse Practitioner Acute Care; Emergency Provider Emergency Medicine; PCP Nurse Practitioner Family; Visit Provider Nurse Practitioner Acute Care | DX: J10.1 Influenza due to other identified influenza virus with other respiratory manifestations (principal); R07.89 Other chest pain | CPT/HCPCS: 99223; 99239 ==

== ENCOUNTER → 2023-06-22 16:01 | Outpatient (BNV) | payer OTHER, SELFPAY | PROVIDERS: Admitting Provider Nurse Practitioner Acute Care; Emergency Provider Emergency Medicine; PCP Nurse Practitioner Family; Visit Provider Internal Medicine | DX: J10.1 Influenza due to other identified influenza virus with other respiratory manifestations (principal); R07.89 Other chest pain | CPT/HCPCS: 99223 ==

== ENCOUNTER → 2023-07-26 15:13 | Outpatient (BNVA) | payer OTHER, SELFPAY | PROVIDERS: PCP Nurse Practitioner Family; Visit Provider Nurse Practitioner Family ==

== ENCOUNTER 2023-07-26 15:14 | Outpatient (AMB) | payer OTHER, SELFPAY ==
[2023-07-26 15:18] VITALS: BP 120/82; PULSE 96; BMI 26.7
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
== END 2023-07-26 15:59 | disposition home or self-care (01) ==
PROVIDERS: PCP Nurse Practitioner Family; Visit Provider Nurse Practitioner Family
DX: R07.89 Other chest pain (principal); S20.219A Contusion of unspecified front wall of thorax, initial encounter; Z09 Encounter for follow-up examination after completed treatment for conditions other than malignant neoplasm
CPT/HCPCS: 99213

== ENCOUNTER → 2023-08-03 08:50 | Outpatient (REF) | payer OTHER, SELFPAY ==
--- NOTE | 2023-08-03 08:52 | CA_ITS ---
Acquisition Time: 2023-08-03 09:05:01 Total Exercise Time: 00:10:00 Test Indications: CP, ABN EKG Medications: SEE H Protocol: JOSE Max HR: 173 BPM 96% of Pred: 179 BPM Max BP: 186/096 mmHG Max Work Load: 11.7 METS Exercise stress test exercise 10 min of Jose protocol achieving 96% MPHR, without anginal symptoms, without arrhythmias, with hypertensive resposne to exercise, with T wave inversion leads aVF V4-V6. Test reviewed with Dr. Winston. Referred By: Breanna Dawn Overread By: Lisa Gutierrez
== END ==
LOC: HO.CARD 08:50
PROVIDERS: Visit Provider Nurse Practitioner Family
DX: R07.89 Other chest pain (principal)
CPT/HCPCS: 93017

== ENCOUNTER → 2023-08-03 08:52 | Outpatient (BNV) | payer OTHER, SELFPAY | PROVIDERS: Visit Provider Nurse Practitioner | DX: R07.9 Chest pain, unspecified (principal); R94.31 Abnormal electrocardiogram [ECG] [EKG] | CPT/HCPCS: 93016; 93018 ==